=== PATIENT | male | born 1990 | race Caucasian/White ===

== ENCOUNTER 2016-11-30 19:25 | Emergency (ER) | payer OTHER ==
[~2016-11-30] VITALS: Ht 188 cm; Wt 68.0 kg
[~2016-11-30 19:25] MED LIST: TRAM50 PO
[2016-11-30 19:30] VITALS: BP 121/78; PULSE 92; RESP 18; TEMP 97.6; O2SAT 99
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
[2016-11-30] MEDS ORDERED: SODIUM CHLOR 0.9% 1000 ML INJ 1,000 ML IV SCH (20:00)
[2016-11-30] MEDS ORDERED: HYDROmorphone HCL PF 1 MG/ML VIAL IV PUSH ONE ×2 (20:00→20:45)
[2016-11-30] MEDS ORDERED: ONDANSETRON HCL 4 MG/2 ML VIAL IV PUSH ONE (20:00)
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
[2016-11-30 20:28] LABS: BASOPHIL # 0.2 TH/MM3 (0-0.2); BASOPHIL % 2.9 % (0.0-2.0); EOSINOPHIL # 0.1 TH/MM3 (0-0.4); EOSINOPHIL % 0.7 % (0.0-4.0); HEMATOCRIT 43.6 % (39.0-51.0); HEMO FLAGS DIFF FINAL; LYMPH % 17.3 % (9.0-44.0); LYMPHOCYTE # 1.5 TH/MM3 (1.0-4.8); MEAN CELL VOLUME 89.4 FL (80.0-100.0); MEAN CORPUSCULAR HEMOGLOBIN 30.1 PG (27.0-34.0); MEAN CORPUSCULAR HGB CONC 33.7 % (32.0-36.0); MONO % 7.2 % (0.0-8.0); NEUT % 71.9 % (16.0-70.0); PLATELET COUNT 379 TH/MM3 (150-450); RED BLOOD COUNT 4.88 MIL/MM3 (4.50-5.90); RED CELL DISTRIBUTION WIDTH 12.8 % (11.6-17.2); WHITE BLOOD COUNT 8.4 TH/MM3 (4.0-11.0)
[2016-11-30 20:47] LABS: BICARBONATE 30.9 MEQ/L (21.0-32.0)
[2016-11-30 20:49] LABS: POTASSIUM 4.4 MEQ/L (3.5-5.1)
[2016-11-30 21:06] VITALS: BP 114/64; PULSE 93; RESP 18; O2SAT 99
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
[2016-11-30] MEDS ORDERED: HYDR-3535 PO (21:18)
[2016-11-30 21:25] VITALS: RESP 16
[2016-11-30 21:36] VITALS: BP 115/66
== END 2016-11-30 21:53 | disposition home or self-care (01) ==
LOC: PHED 19:25
DX: S92.001A Unspecified fracture of right calcaneus, initial encounter for closed fracture (principal); F17.210 Nicotine dependence, cigarettes, uncomplicated; F10.10 Alcohol abuse, uncomplicated; V00.832A Motorized mobility scooter colliding with stationary object, initial encounter; Y93.9 Activity, unspecified; Y92.9 Unspecified place or not applicable; Y99.9 Unspecified external cause status
CPT/HCPCS: 29515; 73090; 73610; 73630; 73700; 80048; 85025; 96361; 96374; 96375; 96376; 99284; E0113; J1170; J2405; J7030

== ENCOUNTER 2017-04-15 17:45 | Emergency (ER) | payer OTHER ==
[~2017-04-15] VITALS: Ht 188 cm; Wt 65.0 kg
[~2017-04-15 17:45] MED LIST changes: +HYDR-3535 PO; -TRAM50 PO
[2017-04-15 17:47] VITALS: BP 136/79; PULSE 116; RESP 15; TEMP 98; O2SAT 98
--- NOTE | 2017-04-15 17:54 | PD ---
Physical Exam Time Seen by Provider: 17:51 Narrative 26yo M c/o R testicular pain for a couple days. Sent by urgent care to r/o torsion. +testicular swelling. Denies dysuria. Patient seen in triage. VS reviewed. Awaiting bed placement. Data Data Last Documented VS Vital Signs Date Time Temp Pulse Resp B/P (MAP) Pulse Ox O2 Delivery O2 Flow Rate FiO2 04/15/17 17:47 98.0 116 15 136/79 (98) 98 MDM Supervised Visit with GLADYS: Helen Vidal Apr 15, 2017 17:54
--- NOTE | 2017-04-15 18:42 | PD ---
HPI Chief Complaint: Complaint Time Seen by Provider: 18:22 Travel History International Travel<30 days: No Contact w/Intl Traveler<30days: No Traveled to known affect area: No History of Present Illness HPI c/o 2 days of testitcular pain right sided, 01/30, nonrad, no discharge, no fever , no n/v/d.... PFSH Past Medical History Hx Anticoagulant Therapy: No ADHD: No Arthritis: No Asthma: No Blood Disorders: No Bipolar Disorder: Yes Anxiety: Yes Depression: Yes Heart Rhythm Problems: No Cancer: No Cardiovascular Problems: No High Cholesterol: No Chemotherapy: No Chest Pain: No Congestive Heart Failure: No COPD: No Cerebrovascular Accident: No Diabetes: No Diminished Hearing: No Endocrine: No GERD: No Glaucoma: No Headaches: No Hepatitis: No Hiatal Hernia: No Hypertension: No Immune Disorder: No Implanted Vascular Access Dvce: No Kidney Stones: No Psychiatric: Yes (HX BIPOLAR, HX ETOH ABUSE) Respiratory: No Immunizations Current: Yes Migraines: No Myocardial Infarction: No Radiation Therapy: No Renal Failure: No Schizophrenia: Yes Seizures: No Past Surgical History Surgical History: No Previous Surgery Abdominal Surgery: No AICD: No Appendectomy: No Arteriovenous Shunt: No Cardiac Surgery: No Cholecystectomy: No Ear Surgery: No Endocrine Surgery: No Eye Surgery: No Genitourinary Surgery: No Gynecologic Surgery: No Insulin Pump: No Joint Replacement: No Neurologic Surgery: No Oral Surgery: No Pacemaker: No Thoracic Surgery: No Other Surgery: No Social History Alcohol Use: Yes (occassionaly ) Tobacco Use: Yes (1 ppd) Substance Use: No Allergies-Medications (Allergen,Severity, Reaction): Coded Allergies: penicillin G (Unverified Allergy, Severe, 04/15/17) Uncoded Allergies: DUST MITES (Allergy, Severe, 11/04/11) Reported Meds & Prescriptions Reported Meds & Active Scripts Active No Active Prescriptions or Reported Medications Review of Systems Except as stated in HPI: all other systems reviewed are Neg Genitourinary: Positive: Other (rt testicular pain) Physical Exam Narrative GENERAL: SKIN: Warm and dry. HEAD: Atraumatic. Normocephalic. EYES: Pupils equal and round. No scleral icterus. No injection or drainage. ENT: No nasal bleeding or discharge. Mucous membranes pink and moist. NECK: Trachea midline. No JVD. CARDIOVASCULAR: Regular rate and rhythm. RESPIRATORY: No accessory muscle use. Clear to auscultation. Breath sounds equal bilaterally. GASTROINTESTINAL: Abdomen soft, non-tender, nondistended. bilateral testicle have normal lie, neg blue dot, present and nl cremasteric reflex, neg inguinal hernia, neg inguinal nodes. however rt testicle mildly ttp MUSCULOSKELETAL: Extremities without clubbing, cyanosis, or edema. No obvious deformities. NEUROLOGICAL: Awake and alert. No obvious cranial nerve deficits. Motor grossly within normal limits. Five out of 5 muscle strength in the arms and legs. Normal speech. PSYCHIATRIC: Appropriate mood and affect; insight and judgment normal. Data Data Last Documented VS Vital Signs Date Time Temp Pulse Resp B/P (MAP) Pulse Ox O2 Delivery O2 Flow Rate FiO2 04/15/17 17:47 98.0 116 15 136/79 (98) 98 Orders Orders Us Testicles W Doppler (04/15/17 18:23) [facility] [place] Medical Decision Making Medical Screen Exam Complete: Yes Emergency Medical Condition: Yes Medical Record Reviewed: Yes Differential Diagnosis epidimytis v orchitis v testicular torsion Narrative Course patient was seen at outpatient and written for abx to treat for orchitis but sent here to r/o possible torsion, after review of testicular ultrasound, negative for torsion. Diagnosis Primary Impression: Orchitis Patient Instructions: General Instructions, Orchitis (ED) Scripts Oxycodone-Acetaminophen (Percocet) 5-325 mg Tab 1 TAB PO Q6H Y for PAIN, #20 TAB 0 Refills Prov: Jesus Calles MD 04/15/17 Disposition: 01 DISCHARGE HOME Condition: Stable Jesus Calles MD Apr 15, 2017 18:42
[2017-04-15] MEDS ORDERED: PERC5TAB12 PO (19:43)
--- NOTE | 2017-04-15 19:56 | RADRPT ---
EXAM DATE/TIME: 04/15/2017 19:11 [facility] COMPARISON: No previous studies available for comparison. INDICATIONS : Testicular pain. MEDICAL HISTORY : Conatcts. Bipolar. ETOH abuse. Schizophrenia. Depression. Anxiety. SURGICAL HISTORY : None. ENCOUNTER: Initial ACUITY: 4 - 6 days PAIN SCORE: 8/10 LOCATION: Bilateral testicles. MEASUREMENTS: RIGHT TESTICLE: 4.7 x 4.1 x 2.9cm LEFT TESTICLE: 5.3 x 3.4 x 2.5 cm FINDINGS: RIGHT TESTICLE: Homogeneous echotexture without intra or extratesticular mass. Blood flow is symmetric and within no rmal limits. There is a hydrocele. No varicocele. Epididymis is within normal limits. LEFT TESTICLE: Homogeneous echotexture without intra or extratesticular mass. Blood flow is symmetric and within no rmal limits. Small hydrocele and varicocele. Epididymis contains a 3 mm simple cyst otherwise, withi n normal limits. SCROTUM: Within normal limits. CONCLUSION: 1. No abnormality is identified to explain the bilateral testicle pain. 2. Bilateral hydroceles, right larger than left. Andrew Miguel MD on April 15, 2017 at 19:52 Board Certified Radiologist. This report was verified electronically.
[2017-04-15] MEDS ORDERED: oxyCODONE/ACETAMINOPHEN 5 MG/325 MG TAB PO ONE (20:00)
== END 2017-04-15 20:13 | disposition home or self-care (01) ==
LOC: NEPD 17:45
DX: N45.2 Orchitis (principal); N43.3 Hydrocele, unspecified; F31.9 Bipolar disorder, unspecified; F41.9 Anxiety disorder, unspecified; F20.9 Schizophrenia, unspecified; F17.200 Nicotine dependence, unspecified, uncomplicated; Z88.0 Allergy status to penicillin
CPT/HCPCS: 76870; 93975; 99285

== ENCOUNTER 2017-05-11 00:31 | Inpatient (IN) | payer OTHER ==
[~2017-05-11] VITALS: Ht 190.5 cm; Wt 63.9 kg
[2017-05-11] VITALS (8 sets, daily range): BP systolic 104–137; BP diastolic 64–85; PULSE 81–115; RESP 16–20; TEMP 97.7–98; O2SAT 97–100
[~2017-05-11 00:31] MED LIST changes: -HYDR-3535 PO; +PERC5TAB12 PO
[2017-05-11] MEDS ORDERED: SODIUM CHLOR 0.9% 1000 ML INJ 1,000 ML IV SCH (00:37)
[2017-05-11] MEDS ORDERED: TETANUS/DIPHTHERIA TOXOID ADULT 0.5 ML VIAL IM ONE (00:45)
[2017-05-11] MEDS ORDERED: SODIUM CHLORIDE 0.9% FLUSH 10 ML FLUSH IVF PRN (00:45)
[2017-05-11] MEDS ORDERED: LIDOCAINE HCL 1% 50 ML VIAL ONE (00:47)
[2017-05-11 00:59] LABS: AUTOMATED NEUTROPHIL # 5.6 TH/MM3 (1.8-7.7); BASOPHIL # 0.1 TH/MM3 (0-0.2); BASOPHIL % 1.2 % (0.0-2.0); EOSINOPHIL # 0.2 TH/MM3 (0-0.4); EOSINOPHIL % 2.1 % (0.0-4.0); HEMATOCRIT 38.7 % (39.0-51.0); HEMO FLAGS DIFF FINAL; LYMPH % 28.2 % (9.0-44.0); LYMPHOCYTE # 2.6 TH/MM3 (1.0-4.8); MEAN CELL VOLUME 91.3 FL (80.0-100.0); MEAN CORPUSCULAR HEMOGLOBIN 29.9 PG (27.0-34.0); MEAN CORPUSCULAR HGB CONC 32.8 % (32.0-36.0); NEUT % 60.5 % (16.0-70.0); PLATELET COUNT 395 TH/MM3 (150-450); RED BLOOD COUNT 4.24 MIL/MM3 (4.50-5.90); RED CELL DISTRIBUTION WIDTH 13.9 % (11.6-17.2); WHITE BLOOD COUNT 9.2 TH/MM3 (4.0-11.0)
[2017-05-11] MEDS ORDERED: MORPHINE SULFATE 4 MG/ML INJ ONE (01:05)
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
[2017-05-11 03:25] LABS: BICARBONATE 30.3 MEQ/L (21.0-32.0)
[2017-05-11 03:36] LABS: APTT (PATIENT) 25.1 SEC (24.3-30.1); PROTHROMBIN TIME - PATIENT 10.7 SEC (9.8-11.6)
--- NOTE | 2017-05-11 04:12 | PD ---
HPI Chief Complaint: Laceration/Skin Injury Time Seen by Provider: 04:05 Travel History International Travel<30 days: No Contact w/Intl Traveler<30days: No Traveled to known affect area: No History of Present Illness HPI Patient is a 26-year-old male with history of bipolar disorder, anxiety and depression who presents to emergency room complaints of left AC laceration. Patient initially reported that he caught his left arm in a sliding door, patient now admits that he tried to commit suicide by cutting himself in the left AC with a plate. Tetanus is not up-to-date. PFSH Past Medical History Hx Anticoagulant Therapy: No ADHD: No Arthritis: No Asthma: No Blood Disorders: No Bipolar Disorder: Yes Anxiety: Yes Depression: Yes Heart Rhythm Problems: No Cancer: No Cardiovascular Problems: No High Cholesterol: No Chemotherapy: No Chest Pain: No Congestive Heart Failure: No COPD: No Cerebrovascular Accident: No Diabetes: No Diminished Hearing: No Endocrine: No GERD: No Glaucoma: No Headaches: No Hepatitis: No Hiatal Hernia: No Hypertension: No Immune Disorder: No Implanted Vascular Access Dvce: No Kidney Stones: No Psychiatric: Yes (HX BIPOLAR, HX ETOH ABUSE) Respiratory: No Immunizations Current: Yes Migraines: No Myocardial Infarction: No Radiation Therapy: No Renal Failure: No Schizophrenia: Yes Seizures: No Tetanus Vaccination: Unknown Past Surgical History Abdominal Surgery: No AICD: No Appendectomy: No Arteriovenous Shunt: No Cardiac Surgery: No Cholecystectomy: No Ear Surgery: No Endocrine Surgery: No Eye Surgery: No Genitourinary Surgery: No Gynecologic Surgery: No Insulin Pump: No Joint Replacement: No Neurologic Surgery: No Oral Surgery: No Pacemaker: No Thoracic Surgery: No Other Surgery: No Social History Alcohol Use: Yes (3 BEERS WEEKLY) Tobacco Use: Yes (1 ppd) Substance Use: No Allergies-Medications (Allergen,Severity, Reaction): Coded Allergies: penicillin G (Unverified Allergy, Severe, 05/11/17) Uncoded Allergies: DUST MITES (Allergy, Severe, 11/04/11) Reported Meds & Prescriptions Reported Meds & Active Scripts Active Clindamycin (Clindamycin HCl) 300 Mg Cap 300 Mg PO Q6H 10 Days Review of Systems General / Constitutional: No: Fever Eyes: No: Visual changes HENT: No: Headaches Cardiovascular: No: Chest Pain or Discomfort Respiratory: No: Shortness of Breath Gastrointestinal: No: Abdominal Pain Genitourinary: No: Dysuria Musculoskeletal: No: Pain Skin: Positive Other (left AC laceration), No Rash Neurologic: No: Weakness Psychiatric: No: Depression Endocrine: No: Polydipsia Hematologic/Lymphatic: No: Easy Bruising Physical Exam Narrative GENERAL: moderate distress SKIN: Focused skin assessment warm/dry. HEAD: Atraumatic. Normocephalic. EYES: Pupils equal and round. No scleral icterus. No injection or drainage. ENT: No nasal bleeding or discharge. Mucous membranes pink and moist. NECK: Trachea midline. No JVD. CARDIOVASCULAR: Regular rate and rhythm. No murmur appreciated. RESPIRATORY: No accessory muscle use. Clear to auscultation. Breath sounds equal bilaterally. GASTROINTESTINAL: Abdomen soft, non-tender, nondistended. Hepatic and splenic margins not palpable. MUSCULOSKELETAL: RUE: normal exam LUE: Patient with venous vs arterial bleed in left AC, patient does have bounding radial pulses, neurovascular intact NEUROLOGICAL: Awake and alert. No obvious cranial nerve deficits. Motor grossly within normal limits. Normal speech. PSYCHIATRIC: Appropriate mood and affect; insight and judgment normal. Data Data Last Documented VS Vital Signs Date Time Temp Pulse Resp B/P (MAP) Pulse Ox O2 Delivery O2 Flow Rate FiO2 05/11/17 07:28 90 16 110/85 (93) 98 Room Air 05/11/17 00:45 98.0 Orders Orders Basic Metabolic Panel (Bmp) (05/11/17 00:37) Complete Blood Count With Diff (05/11/17 00:37) Prothrombin Time / Inr (Pt) (05/11/17 00:37) Act Partial Throm Time (Ptt) (05/11/17 00:37) Type And Screen (05/11/17 00:37) Iv Access Insert/Monitor (05/11/17 00:37) Sodium Chlor 0.9% 1000 Ml Inj (Ns 1000 M (05/11/17 00:37) Sodium Chloride 0.9% Flush (Ns Flush) (05/11/17 00:45) Tetanus/Diphtheria Tox Adult (Tetanus/Di (05/11/17 00:45) Lidocaine 1% Inj (50 Ml) (Xylocaine 1% I (05/11/17 00:47) Comprehensive Metabolic Panel (05/11/17 00:50) Psych Screen (05/11/17 00:50) Drug Screen, Random Urine (05/11/17 00:50) Alcohol (Ethanol) (05/11/17 00:50) Forearm (2vws) (05/11/17 ) Morphine Inj (Morphine Inj) (05/11/17 01:05) Cta Up Extrem W Iv Cont W 3d (05/11/17 ) Consult Vascular Surgery (05/11/17 ) Vancomycin Inj (Vancomycin Inj) (05/11/17 07:00) (Hub Use Only)Inp Phy Cons/Ref (05/11/17 ) Vancomycin Inj (Vancomycin Inj) (05/11/17 08:00) Diet Regular Basic (05/11/17 Breakfast) Diet Regular Basic (05/11/17 Lunch) Admit Order (Ed Use Only) (05/11/17 ) Admit To Inpatient Psych (05/11/17 ) Code Status (05/11/17 15:44) Vital Signs (Adult) YONIS.Q12H.E (05/11/17 15:44) Activity Oob Ad Tanja (05/11/17 15:44) Level Of Observation (Psych) (05/11/17 15:44) Acetaminophen (Tylenol) (05/11/17 15:45) Magnesium Hydroxide Liq (Milk Of Magnesi (05/11/17 15:45) Al-Mag Hy-Si 40-40-4 Mg/Ml Liq (Mag-Al P (05/11/17 15:45) Nicotine 21 Mg Patch.24 Hr (Habitrol 21 (05/12/17 09:00) Basic Metabolic Panel (Bmp) (05/12/17 06:00) Lipid Profile (05/12/17 06:00) Hemoglobin (Hgb) A1c (05/12/17 06:00) Labs Laboratory Tests Test 05/11/17 00:40 05/11/17 03:55 White Blood Count 9.2 TH/MM3 Red Blood Count 4.24 MIL/MM3 Hemoglobin 12.7 GM/DL Hematocrit 38.7 % Mean Corpuscular Volume 91.3 FL Mean Corpuscular Hemoglobin 29.9 PG Mean Corpuscular Hemoglobin Concent 32.8 % Red Cell Distribution Width 13.9 % Platelet Count 395 TH/MM3 Mean Platelet Volume 6.6 FL Neutrophils (%) (Auto) 60.5 % Lymphocytes (%) (Auto) 28.2 % Monocytes (%) (Auto) 8.0 % Eosinophils (%) (Auto) 2.1 % Basophils (%) (Auto) 1.2 % Neutrophils # (Auto) 5.6 TH/MM3 Lymphocytes # (Auto) 2.6 TH/MM3 Monocytes # (Auto) 0.7 TH/MM3 Eosinophils # (Auto) 0.2 TH/MM3 Basophils # (Auto) 0.1 TH/MM3 CBC Comment DIFF FINAL Differential Comment Prothrombin Time 10.7 SEC Prothromb Time International Ratio 1.0 RATIO Activated Partial Thromboplast Time 25.1 SEC Blood Urea Nitrogen 9 MG/DL Creatinine 0.76 MG/DL Random Glucose 116 MG/DL Total Protein 6.4 GM/DL Albumin 3.2 GM/DL Calcium Level 8.5 MG/DL Alkaline Phosphatase 59 U/L Aspartate Amino Transf (AST/SGOT) 21 U/L Alanine Aminotransferase (ALT/SGPT) 28 U/L Total Bilirubin 0.1 MG/DL Sodium Level 140 MEQ/L Potassium Level 4.0 MEQ/L Chloride Level 106 MEQ/L Carbon Dioxide Level 29.5 MEQ/L Anion Gap 5 MEQ/L Estimat Glomerular Filtration Rate 124 ML/MIN Ethyl Alcohol Level LESS THAN 3 MG/DL Urine Opiates Screen POS Urine Barbiturates Screen NEG Urine Amphetamines Screen NEG Urine Benzodiazepines Screen NEG Urine Cocaine Screen NEG Urine Cannabinoids Screen NEG MDM Medical Decision Making Medical Screen Exam Complete: Yes Emergency Medical Condition: Yes Interpretation(s) Vital Signs Date Time Temp Pulse Resp B/P (MAP) Pulse Ox O2 Delivery O2 Flow Rate FiO2 05/11/17 03:58 95 18 120/67 (84) 97 Room Air 05/11/17 01:35 97 16 114/74 (87) 99 Room Air 05/11/17 00:59 115 18 137/70 (92) 100 Room Air 05/11/17 00:51 111 18 129/74 (92) 100 Room Air 05/11/17 00:45 98.0 99 20 129/74 (92) 98 Laboratory Tests Test 05/11/17 00:40 White Blood Count 9.2 TH/MM3 (4.0-11.0) Red Blood Count 4.24 MIL/MM3 (4.50-5.90) Hemoglobin 12.7 GM/DL (13.0-17.0) Hematocrit 38.7 % (39.0-51.0) Mean Corpuscular Volume 91.3 FL (80.0-100.0) Mean Corpuscular Hemoglobin 29.9 PG (27.0-34.0) Mean Corpuscular Hemoglobin Concent 32.8 % (32.0-36.0) Red Cell Distribution Width 13.9 % (11.6-17.2) Platelet Count 395 TH/MM3 (150-450) Mean Platelet Volume 6.6 FL (7.0-11.0) Neutrophils (%) (Auto) 60.5 % (16.0-70.0) Lymphocytes (%) (Auto) 28.2 % (9.0-44.0) Monocytes (%) (Auto) 8.0 % (0.0-8.0) Eosinophils (%) (Auto) 2.1 % (0.0-4.0) Basophils (%) (Auto) 1.2 % (0.0-2.0) Neutrophils # (Auto) 5.6 TH/MM3 (1.8-7.7) Lymphocytes # (Auto) 2.6 TH/MM3 (1.0-4.8) Monocytes # (Auto) 0.7 TH/MM3 (0-0.9) Eosinophils # (Auto) 0.2 TH/MM3 (0-0.4) Basophils # (Auto) 0.1 TH/MM3 (0-0.2) CBC Comment DIFF FINAL Differential Comment Prothrombin Time 10.7 SEC (9.8-11.6) Prothromb Time International Ratio 1.0 RATIO Activated Partial Thromboplast Time 25.1 SEC (24.3-30.1) Blood Urea Nitrogen 9 MG/DL (7-18) Creatinine 0.74 MG/DL (0.60-1.30) Random Glucose 120 MG/DL (74-106) Calcium Level 8.4 MG/DL (8.5-10.1) Sodium Level 142 MEQ/L (136-145) Potassium Level 4.0 MEQ/L (3.5-5.1) Chloride Level 106 MEQ/L (98-107) Carbon Dioxide Level 30.3 MEQ/L (21.0-32.0) Anion Gap 6 MEQ/L (5-15) Estimat Glomerular Filtration Rate 128 ML/MIN (>89) Differential Diagnosis Differential includes ulnar artery versus venous injury, depression, schizophenia Narrative Course Patient is a 26 year old male who presents to ER with c/o of left sided AC laceration. Patient reports that he tried to commit suicide today by slitting his left AC with a plate. Patient arrives to the emergency room with a tourniquet in place. Patient was evaluated, patient with arterial versus venous bleeding. I attempted to ligate off bleeding vessel with absorbable figure of 8 sutures. After absorbable sutures placed, tourniquet was removed and patient had return of bleeding. The tourniquet was replaced and I was able to place 3 5.0 Prolene sutures with pressure dressing - bleeding controlled at this time. CTA ordered to evaluate for possible arterial bleeding. CTA neg for arterial compromise. Prolene sutures were removed and deep absorbable sutures were placed and laceration was repaired. Patient was given a dose of IV vanco. Understands need for antibiotics as outpatient. Signs of infection was reviewed with patient in detail, understands need for wound check in 48 hours. Case reviewed with vascular surgery, Dr. Pastrana, patient with most likely venous bleed. Patient can be sutured up and cleared for psychiatric screening. patient cleared for psychiatric screener Critical Care Narrative Aggregate critical care time was 60 minutes. Time to perform other separately billable procedures was not included in the critical care time. My time did not include minutes spent treating any other patients simultaneously or on activities that did not directly contribute to the patient's treatment. The services I provided to this patient were to treat and/or prevent clinically significant deterioration that could result in: , decompensation, deterioration I provided critical care services requiring my management, as noted below: Chart data review, documentation time, medication orders and management, vital sign assessments/reviewing monitor data, ordering and reviewing lab tests, ordering and interpreting/reviewing x-rays and diagnostic studies, care of the patient and discussion of the patient with the admitting physicians. Diagnosis Primary Impression: Laceration of arm, left, complicated Additional Impression: Suicidal ideation Patient Instructions: General Instructions Additional Instructions: suture removal in 7 days have your wound checked in 48 hours return to ER if you develop any signs of infection please take all antibiotics as prescribed Scripts Clindamycin (Clindamycin) 300 Mg Cap 300 MG PO Q6H for Infection for 10 Days, #40 CAP 0 Refills Prov: Erika Mehta DO 05/11/17 Erika Mehta DO May 11, 2017 04:12
[2017-05-11] MEDS ORDERED: IOHEXOL 350 MG/ML 10 ML VIAL (for RAD DIAG) IVCONTRAST ONE (04:13)
[2017-05-11 05:01] LABS: ALKALINE PHOSPHATASE 59 U/L (45-117); TOTAL BILIRUBIN ADULT 0.1 MG/DL (0.2-1.0)
[2017-05-11 05:11] LABS: ALT (GPT) 28 U/L (12-78); ANION GAP 5 MEQ/L (5-15); AST (GOT) 21 U/L (15-37); BICARBONATE 29.5 MEQ/L (21.0-32.0); BLOOD UREA NITROGEN 9 MG/DL (7-18); CHLORIDE 106 MEQ/L (98-107); GLOMERULAR FILTRATION RATE 124 ML/MIN (>89); SODIUM (NA) 140 MEQ/L (136-145)
[2017-05-11 05:20] LABS: ALCOHOL LESS THAN 3 MG/DL (0-5)
--- NOTE | 2017-05-11 05:51 | PD.CAR.PN ---
CVT Progress Note Subjective/Hospital Course: 26-year-old male with extensive psychiatric history arrives to emergency room with self inflicted wound to the left antecubital fossa, possibly suicide attempt. Patient lost the small amount of blood and has a questionable injury to the tendons and arteries Physical examination reveals good brachial ulnar and radial pulse which is strong and palpable. Incision antecubital posthitis fairly shallow involves antecubital vein but does not go beyond that and does not penetrate the neurovascular fascia. Patient does not have tendon injuries or ligamentous injury Neurologic function is intact in median and ulnar nerve innervation areas are fully intact Patient needs a incision closed and then can be transferred safely to psychiatry No other surgical therapy will be necessary. Stitches sustained for about 2 weeks Diagnosis Superficial wound to the left antecubital fossa without involvement of major neurovascular structures. Thanks J Objective: Vital Signs Date Time Temp Pulse Resp B/P (MAP) Pulse Ox O2 Delivery O2 Flow Rate FiO2 05/11/17 03:58 95 18 120/67 (84) 97 Room Air 05/11/17 01:35 97 16 114/74 (87) 99 Room Air 05/11/17 00:59 115 18 137/70 (92) 100 Room Air 05/11/17 00:51 111 18 129/74 (92) 100 Room Air 05/11/17 00:45 98.0 99 20 129/74 (92) 98 Labs: Laboratory Tests Test 05/11/17 00:40 05/11/17 03:55 White Blood Count 9.2 TH/MM3 (4.0-11.0) Red Blood Count 4.24 MIL/MM3 (4.50-5.90) Hemoglobin 12.7 GM/DL (13.0-17.0) Hematocrit 38.7 % (39.0-51.0) Mean Corpuscular Volume 91.3 FL (80.0-100.0) Mean Corpuscular Hemoglobin 29.9 PG (27.0-34.0) Mean Corpuscular Hemoglobin Concent 32.8 % (32.0-36.0) Red Cell Distribution Width 13.9 % (11.6-17.2) Platelet Count 395 TH/MM3 (150-450) Mean Platelet Volume 6.6 FL (7.0-11.0) Neutrophils (%) (Auto) 60.5 % (16.0-70.0) Lymphocytes (%) (Auto) 28.2 % (9.0-44.0) Monocytes (%) (Auto) 8.0 % (0.0-8.0) Eosinophils (%) (Auto) 2.1 % (0.0-4.0) Basophils (%) (Auto) 1.2 % (0.0-2.0) Neutrophils # (Auto) 5.6 TH/MM3 (1.8-7.7) Lymphocytes # (Auto) 2.6 TH/MM3 (1.0-4.8) Monocytes # (Auto) 0.7 TH/MM3 (0-0.9) Eosinophils # (Auto) 0.2 TH/MM3 (0-0.4) Basophils # (Auto) 0.1 TH/MM3 (0-0.2) CBC Comment DIFF FINAL Differential Comment Prothrombin Time 10.7 SEC (9.8-11.6) Prothromb Time International Ratio 1.0 RATIO Activated Partial Thromboplast Time 25.1 SEC (24.3-30.1) Blood Urea Nitrogen 9 MG/DL (7-18) Creatinine 0.76 MG/DL (0.60-1.30) Random Glucose 116 MG/DL (74-106) Total Protein 6.4 GM/DL (6.4-8.2) Albumin 3.2 GM/DL (3.4-5.0) Calcium Level 8.5 MG/DL (8.5-10.1) Alkaline Phosphatase 59 U/L (45-117) Aspartate Amino Transf (AST/SGOT) 21 U/L (15-37) Alanine Aminotransferase (ALT/SGPT) 28 U/L (12-78) Total Bilirubin 0.1 MG/DL (0.2-1.0) Sodium Level 140 MEQ/L (136-145) Potassium Level 4.0 MEQ/L (3.5-5.1) Chloride Level 106 MEQ/L (98-107) Carbon Dioxide Level 29.5 MEQ/L (21.0-32.0) Anion Gap 5 MEQ/L (5-15) Estimat Glomerular Filtration Rate 124 ML/MIN (>89) Ethyl Alcohol Level LESS THAN 3 MG/DL (0-5) Urine Opiates Screen POS (NEG) Urine Barbiturates Screen NEG (NEG) Urine Amphetamines Screen NEG (NEG) Urine Benzodiazepines Screen NEG (NEG) Urine Cocaine Screen NEG (NEG) Urine Cannabinoids Screen NEG (NEG) Result Diagram: 05/11/170 05/11/17 0040 Jeni Pastrana MD May 11, 2017 05:51
--- NOTE | 2017-05-11 06:13 | PD ---
Physical Exam Date Seen by Provider: May 11, 2017 Time Seen by Provider: 06:10 Narrative Skin: Patient has a laceration to the left antecubital fossa consistent with a self-inflicted wound. The laceration measures5 cm. Laceration goes through the subcutaneous tissues through venous structure but there is no deep structure injury. No arterial, nerve or arterial injury. Patient has intact sensation with good distal pulses. He has intact median/ulnar/radial nerves. Data Data Last Documented VS Vital Signs Date Time Temp Pulse Resp B/P (MAP) Pulse Ox O2 Delivery O2 Flow Rate FiO2 05/11/17 03:58 95 18 120/67 (84) 97 Room Air 05/11/17 00:45 98.0 Orders Orders Basic Metabolic Panel (Bmp) (05/11/17 00:37) Complete Blood Count With Diff (05/11/17 00:37) Prothrombin Time / Inr (Pt) (05/11/17 00:37) Act Partial Throm Time (Ptt) (05/11/17 00:37) Type And Screen (05/11/17 00:37) Iv Access Insert/Monitor (05/11/17 00:37) Sodium Chlor 0.9% 1000 Ml Inj (Ns 1000 M (05/11/17 00:37) Sodium Chloride 0.9% Flush (Ns Flush) (05/11/17 00:45) Tetanus/Diphtheria Tox Adult (Tetanus/Di (05/11/17 00:45) Lidocaine 1% Inj (50 Ml) (Xylocaine 1% I (05/11/17 00:47) Comprehensive Metabolic Panel (05/11/17 00:50) Psych Screen (05/11/17 00:50) Drug Screen, Random Urine (05/11/17 00:50) Alcohol (Ethanol) (05/11/17 00:50) Forearm (2vws) (05/11/17 ) Morphine Inj (Morphine Inj) (05/11/17 01:05) Cta Up Extrem W Iv Cont W 3d (05/11/17 ) Consult Vascular Surgery (05/11/17 ) Labs Laboratory Tests Test 05/11/17 00:40 05/11/17 03:55 White Blood Count 9.2 TH/MM3 Red Blood Count 4.24 MIL/MM3 Hemoglobin 12.7 GM/DL Hematocrit 38.7 % Mean Corpuscular Volume 91.3 FL Mean Corpuscular Hemoglobin 29.9 PG Mean Corpuscular Hemoglobin Concent 32.8 % Red Cell Distribution Width 13.9 % Platelet Count 395 TH/MM3 Mean Platelet Volume 6.6 FL Neutrophils (%) (Auto) 60.5 % Lymphocytes (%) (Auto) 28.2 % Monocytes (%) (Auto) 8.0 % Eosinophils (%) (Auto) 2.1 % Basophils (%) (Auto) 1.2 % Neutrophils # (Auto) 5.6 TH/MM3 Lymphocytes # (Auto) 2.6 TH/MM3 Monocytes # (Auto) 0.7 TH/MM3 Eosinophils # (Auto) 0.2 TH/MM3 Basophils # (Auto) 0.1 TH/MM3 CBC Comment DIFF FINAL Differential Comment Prothrombin Time 10.7 SEC Prothromb Time International Ratio 1.0 RATIO Activated Partial Thromboplast Time 25.1 SEC Blood Urea Nitrogen 9 MG/DL Creatinine 0.76 MG/DL Random Glucose 116 MG/DL Total Protein 6.4 GM/DL Albumin 3.2 GM/DL Calcium Level 8.5 MG/DL Alkaline Phosphatase 59 U/L Aspartate Amino Transf (AST/SGOT) 21 U/L Alanine Aminotransferase (ALT/SGPT) 28 U/L Total Bilirubin 0.1 MG/DL Sodium Level 140 MEQ/L Potassium Level 4.0 MEQ/L Chloride Level 106 MEQ/L Carbon Dioxide Level 29.5 MEQ/L Anion Gap 5 MEQ/L Estimat Glomerular Filtration Rate 124 ML/MIN Ethyl Alcohol Level LESS THAN 3 MG/DL Urine Opiates Screen POS Urine Barbiturates Screen NEG Urine Amphetamines Screen NEG Urine Benzodiazepines Screen NEG Urine Cocaine Screen NEG Urine Cannabinoids Screen NEG MDM Medical Record Reviewed: Yes Supervised Visit with GLADYS: Yes Interpretation(s) CTA left upper extremity shows intact arterial structures. Last 24 hours Impressions Radius/Ulna X-Ray 05/11/17 0000 Signed Impressions: Service Date/Time: Thursday, May 11, 2017 01:09 - CONCLUSION: Unremarkable examination of the left forearm. Guanakito Gottlieb Jr., MD Differential Diagnosis MDM: High Differential diagnoses: Fracture, sprain, strain, dislocation, contusion, neurovascular injury, self-inflicted wound Narrative Course Patient's laceration is closed with sutures. Procedures Procedure Narrative LACERATION LOCATION: Left antecubital fossa LENGTH: 5 cm NUMBER OF STITCHES/MAKEDA: 9 REPAIR: The area of the laceration was prepped with Betadine and sterilely draped. The laceration was infiltrated with 1% lidocaine. The wound was copiously irrigated and explored without evidence of foreign body, tendon injury or neurovascular injury. Venous bleeding is ligated using 4-0 Vicryl. The wound was closed using 4-0 proline. This was a single layer repair. A sterile dressing was applied. The patient was advised to keep the dressing clean and dry. Patient tolerated the procedure well. Scripts No Active Prescriptions or Reported Meds Condition: Imer Horvath May 11, 2017 06:13
[2017-05-11] MEDS ORDERED: CLIN1CAP6 PO (06:47)
[2017-05-11] MEDS ORDERED: VANCOMYCIN INJ 1,000 MG in SODIUM CHLOR 0.9% 250 ML INJ 250 ML IV ONE ×2 (07:00→08:00)
--- NOTE | 2017-05-11 08:43 | RADRPT ---
EXAM DATE/TIME: 05/11/2017 04:13 [facility] COMPARISON: No previous studies available for comparison. INDICATIONS : Patient has laceration to left forearm near elbow. IV CONTRAST: 100 cc Omnipaque 350 (iohexol) IV RADIATION DOSE: 7.48 CTDIvol (mGy) MEDICAL HISTORY : None SURGICAL HISTORY : None. ENCOUNTER: Initial ACUITY: 1 day PAIN SCALE: 10/10 LOCATION: Left upper extremity. TECHNIQUE: Volumetric scanning was performed using a multirow detector CT scanner. Using automated exposure cont rol and adjustment of the mA and/or kV according to patient size, radiation dose was kept as low as r easonably achievable to obtain optimal diagnostic quality images. The data was post processed with a variety of visualization algorithms including full-volume maximum intensity projection, multiplanar sliding thin-slab reformation, curved-planar reformation, and surface-rendering techniques. Using au tomated exposure control and adjustment of the mA and/or kV according to patient size, radiation dose was kept as low as reasonably achievable to obtain optimal diagnostic quality images. DICOM format image data is available electronically for review and comparison. FINDINGS: The subclavian artery through the palmar arch is normal. No filling defects. No intimal flaps. No jyothi rounding hematoma. No radiopaque foreign bodies. No fractures. CONCLUSION: Normal examination. Guanakito Gottlieb Jr., MD on May 11, 2017 at 4:57 Board Certified Radiologist. This report was verified electronically.
[2017-05-11] MEDS ORDERED: ALUMINUM/MAGNESIUM/SIMETH 30 ML CUP PO PRN (15:45)
[2017-05-11] MEDS ORDERED: ACETAMINOPHEN 325 MG TAB PO PRN (15:45)
[2017-05-11] MEDS ORDERED: MAGNESIUM HYDROXIDE SUSP 30 ML CUP PO PRN (15:45)
[2017-05-12 06:05] VITALS: BP 118/57; PULSE 78; RESP 18; TEMP 98.2; O2SAT 99
[2017-05-12] MEDS: NICOTINE 21 MG/24 HR PATCH T-DERMAL SCH (09:00)
[2017-05-12 11:22] LABS: ANION GAP 6 MEQ/L (5-15); BICARBONATE 30.3 MEQ/L (21.0-32.0); BLOOD UREA NITROGEN 9 MG/DL (7-18); CHLORIDE 101 MEQ/L (98-107); GLOMERULAR FILTRATION RATE 132 ML/MIN (>89); SODIUM (NA) 137 MEQ/L (136-145)
[2017-05-12 11:24] LABS: LDL CHOLESTEROL 35 MG/DL (0-99)
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
[2017-05-12] MEDS: CLINDAMYCIN 150 MG CAP PO SCH (17:11)
[2017-05-12 17:29] LABS: HEMOGLOBIN A1a 1.2 %; HEMOGLOBIN A1b 0.7 %; HEMOGLOBIN Ao 85.6 %; HEMOGLOBIN F 1.7 %; HEMOGLOBIN LA1C 1.7 %; HEMOGLOBIN P3 3.4 %
[2017-05-12 18:34] VITALS: BP 123/69; PULSE 96; RESP 18; TEMP 97.2; O2SAT 98
[2017-05-12] MEDS: REMOVE OLD NICODERM (NICOTINE) PATCH T-DERMAL SCH (21:00)
[2017-05-13 06:07] VITALS: BP 114/68; PULSE 72; RESP 16; TEMP 98.8; O2SAT 98
[2017-05-13] MEDS: CLINDAMYCIN 150 MG CAP PO SCH ×5 (06:13→23:17)
[2017-05-13] MEDS: NICOTINE 21 MG/24 HR PATCH T-DERMAL SCH (09:57)
[2017-05-13] MEDS: REMOVE OLD NICODERM (NICOTINE) PATCH T-DERMAL SCH (09:57)
[2017-05-13 18:01] VITALS: BP 127/72; PULSE 97; RESP 17; TEMP 97.7; O2SAT 100
[2017-05-14 04:53] VITALS: BP 120/70; PULSE 81; RESP 16; TEMP 98; O2SAT 98
[2017-05-14] MEDS: CLINDAMYCIN 150 MG CAP PO SCH ×3 (06:02→18:46)
[2017-05-14] MEDS: NICOTINE 21 MG/24 HR PATCH T-DERMAL SCH (09:27)
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
[2017-05-14 18:17] VITALS: BP 141/65; PULSE 103; RESP 18; TEMP 97.6; O2SAT 96
[2017-05-14] MEDS: REMOVE OLD NICODERM (NICOTINE) PATCH T-DERMAL SCH (21:00)
[2017-05-15] MEDS: CLINDAMYCIN 150 MG CAP PO SCH ×4 (05:49→17:57)
[2017-05-15 06:13] VITALS: BP 124/68; PULSE 85; RESP 18; TEMP 98.4; O2SAT 97
[2017-05-15] MEDS: NICOTINE 21 MG/24 HR PATCH T-DERMAL SCH (08:25)
[2017-05-15 18:29] VITALS: BP 127/58; PULSE 105; RESP 18; TEMP 98.2; O2SAT 96
[2017-05-15] MEDS ORDERED: CLIN150 PO (19:35)
--- NOTE | 2017-05-15 20:27 | MD ---
cc: ANITA FELDMAN ADMISSION DATE: 05/11/2017 DISCHARGE DATE: [facility].Discharge Date 05/15/2017 ADMISSION DIAGNOSES [place] I: Bipolar affective disorder under remission. Polysubstance abuse. Chronic alcohol abuse. Self-inflicted laceration left antecubital fossa. 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 [place] III: No diagnosis. [place] IV: Severity of psychosocial stressors moderate, i.e., chronic psychiatric illness, conflictual relationship with girlfriend and mother and siblings. [place] V: Current GAF score 40. DISCHARGE DIAGNOSIS [place] I: Bipolar affective disorder under remission. Polysubstance abuse. Chronic alcohol abuse. Self-inflicted laceration left antecubital fossa. 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 [place] III: No diagnosis. [place] IV: Severity of psychosocial stressors moderate, i.e., chronic psychiatric illness, conflictual relationship with girlfriend and mother and siblings. [place] V: Current GAF score 60. This 26-year-old white male was brought to the emergency room OF this hospital by [facility] and was placed under the Daigle Act by the emergency room physician because of self-inflicted laceration to his left antecubital fossa which required suturing. This was precipitated by an argument with his girlfriend. Please refer to my initial and previous evaluations for details. LABORATORY FINDINGS CBC with differential unremarkable. CMP was done on different dates and was essentially unremarkable except serum triglycerides were 236. Urine drug screen was positive for opiates. Blood alcohol level less than 3. X-ray of the left forearm was negative for any fracture or dislocation. CTA of the left upper extremity was negative for any acute process. HOSPITAL COURSE Mr. Borrero is known to me since his adolescence. He has required several admissions to [facility] and to the [facility]. All of these admissions have resulted from acting out behavior. In addition, he has significant substance abuse problem. Unfortunately, he has very limited insight and motivation to work on these. When initially evaluated this time he denied the self-inflicted laceration was a suicide attempt and attributed this to an argument he had with his ex-girlfriend during which he became angry and engaged in this behavior. He denied any recent history of manic or depressive episodes. It should be mentioned that he does not like to take any medications or for that matter complies with any outpatient follow up. This happens to the case this time as well. Despite best efforts he refused to consider taking the medications he was previously discharged on i.e., Depakote and Zoloft. He was given option to try any different medication of his choice but he still was not receptive to it. Considering his history of acting out and recent self-inflicted laceration it was felt that he needed more time to process his behavior and hopefully change his mind in regards to the medications. As such involuntary admission was initiated. His condition was reviewed on a daily basis with the treatment team. Compared to other admissions this time he displayed better attitude. He did not exhibit any aggressive or self-destructive behavior nor did he exhibit any psychotic symptoms. He however remained his superficial self and very focused on discharge. He tends to externalize the blame and this was also quite noticeable during this admission as well. The therapist talked with his mother yesterday and she also supported his request for discharge. I met with both of them today in a family session and we reviewed his condition, the recommended treatment approach. The mother indicated that he seemed to doing better than previous admissions and supported his request for discharge. They both wrote a note to this effect which is in the chart. The mother is very supportive and reassured that she will make followup appointments for him for individual therapy and psychiatric followup at [facility]. His condition was again reviewed with the treatment team and it was felt considering the fact that he has not exhibited any psychotic symptoms nor has he engaged in any aggressive or self-destructive behavior and the fact that the mother is quite supportive and motivated to assist him with outpatient follow up the Daigle Act would be lifted. So at this time he is felt that he no longer meets the Daigle Act criteria and is being discharged in the custody of his mother with recommendations to continue outpatient follow up at [facility]. The mother and the patient were also recommended to follow up with the primary care physician or return to the emergency room for removal of sutures. He is being given a prescription of clindamycin 300 milligrams p.o. q.6 hours, 5 days supply. MD SARAH Bolanos/JANNETH /7:52 PM /8:07 PM
== END 2017-05-15 20:55 | disposition home or self-care (01) | DRG 885 ==
LOC: NEPE 00:31 → NEDA 15:47 → H260 16:50
PROVIDERS: ADMIT Psychiatry & Neurology Psychiatry; ATTEND Psychiatry & Neurology Psychiatry
PROC: 0HQEXZZ Repair Left Lower Arm Skin, External Approach (ICD-10-PCS; principal; 2017-05-11)
DX: F31.70 Bipolar disorder, currently in remission, most recent episode unspecified (principal); F60.3 Borderline personality disorder; F10.10 Alcohol abuse, uncomplicated; F19.10 Other psychoactive substance abuse, uncomplicated; F60.2 Antisocial personality disorder; F60.89 Other specific personality disorders; S51.012A Laceration without foreign body of left elbow, initial encounter; F17.210 Nicotine dependence, cigarettes, uncomplicated; X78.8XXA Intentional self-harm by other sharp object, initial encounter; Y92.009 Unspecified place in unspecified non-institutional (private) residence as the place of occurrence of the external cause
CPT/HCPCS: 12002; 73090; 73206; 80048; 80053; 80061; 80307; 83036; 85025; 85610; 85730; 86850; 86900; 86901; 90471; 90714; 96361; 96374; 96375; J2270; J3370; J7030; J7050; Q9967

== ENCOUNTER 2017-05-16 04:28 | Emergency (ER) | payer OTHER ==
[~2017-05-16] VITALS: Ht 188 cm; Wt 70.0 kg
[~2017-05-16 04:28] MED LIST changes: +CLIN150 PO; +CLIN1CAP6 PO; -PERC5TAB12 PO
[2017-05-16 05:01] VITALS: BP 126/86; PULSE 79; RESP 16; TEMP 98.7; O2SAT 98
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
[2017-05-16 06:04] LABS: ALT (GPT) 70 U/L (12-78); ANION GAP 8 MEQ/L (5-15); AST (GOT) 34 U/L (15-37); AUTOMATED NEUTROPHIL # 11.2 TH/MM3 (1.8-7.7); BASOPHIL # 0.1 TH/MM3 (0-0.2); BASOPHIL % 0.8 % (0.0-2.0); BICARBONATE 23.4 MEQ/L (21.0-32.0); BLOOD UREA NITROGEN 9 MG/DL (7-18); CHLORIDE 106 MEQ/L (98-107); EOSINOPHIL # 0.2 TH/MM3 (0-0.4); EOSINOPHIL % 1.3 % (0.0-4.0); GLOMERULAR FILTRATION RATE 130 ML/MIN (>89); HEMATOCRIT 35.5 % (39.0-51.0); HEMO FLAGS DIFF FINAL; LYMPH % 12.6 % (9.0-44.0); LYMPHOCYTE # 1.8 TH/MM3 (1.0-4.8); MEAN CELL VOLUME 89.6 FL (80.0-100.0); MEAN CORPUSCULAR HEMOGLOBIN 30.4 PG (27.0-34.0); MEAN CORPUSCULAR HGB CONC 33.9 % (32.0-36.0); MONO % 8.7 % (0.0-8.0); NEUT % 76.6 % (16.0-70.0); PLATELET COUNT 366 TH/MM3 (150-450); POTASSIUM 4.1 MEQ/L (3.5-5.1); RED BLOOD COUNT 3.96 MIL/MM3 (4.50-5.90); RED CELL DISTRIBUTION WIDTH 14.1 % (11.6-17.2); SODIUM (NA) 137 MEQ/L (136-145); WHITE BLOOD COUNT 14.6 TH/MM3 (4.0-11.0)
[2017-05-16 06:06] LABS: ALKALINE PHOSPHATASE 67 U/L (45-117); TOTAL BILIRUBIN ADULT 0.2 MG/DL (0.2-1.0)
[2017-05-16 06:18] LABS: ALCOHOL LESS THAN 3 MG/DL (0-5)
[2017-05-16 06:45] VITALS: BP 126/72; PULSE 95; RESP 16; TEMP 98.1; O2SAT 99
[2017-05-16 09:46] VITALS: BP 128/75; PULSE 100; RESP 18; TEMP 98.6; O2SAT 98
== END 2017-05-16 10:15 | disposition left against medical advice (07) ==
LOC: NEPC 04:28
DX: F43.25 Adjustment disorder with mixed disturbance of emotions and conduct (principal); S61.512A Laceration without foreign body of left wrist, initial encounter; X78.9XXA Intentional self-harm by unspecified sharp object, initial encounter
CPT/HCPCS: 80053; 80307; 85025; 99283

== ENCOUNTER 2017-05-16 09:41 | Emergency (ER) | payer OTHER ==
[~2017-05-16] VITALS: Ht 182.9 cm; Wt 65.0 kg
[2017-05-16 10:42] LABS: AUTOMATED NEUTROPHIL # 11.4 TH/MM3 (1.8-7.7); BASOPHIL # 0.2 TH/MM3 (0-0.2); BASOPHIL % 1.1 % (0.0-2.0); EOSINOPHIL # 0.2 TH/MM3 (0-0.4); EOSINOPHIL % 1.4 % (0.0-4.0); HEMATOCRIT 33.8 % (39.0-51.0); HEMO FLAGS DIFF FINAL; LYMPH % 12.9 % (9.0-44.0); LYMPHOCYTE # 1.9 TH/MM3 (1.0-4.8); MEAN CELL VOLUME 89.9 FL (80.0-100.0); MEAN CORPUSCULAR HEMOGLOBIN 29.5 PG (27.0-34.0); MEAN CORPUSCULAR HGB CONC 32.8 % (32.0-36.0); MONO % 7.5 % (0.0-8.0); NEUT % 77.1 % (16.0-70.0); PLATELET COUNT 374 TH/MM3 (150-450); RED BLOOD COUNT 3.76 MIL/MM3 (4.50-5.90); RED CELL DISTRIBUTION WIDTH 14.1 % (11.6-17.2); WHITE BLOOD COUNT 14.8 TH/MM3 (4.0-11.0)
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
[2017-05-16 10:54] LABS: ALT (GPT) 62 U/L (12-78); ANION GAP 5 MEQ/L (5-15); AST (GOT) 26 U/L (15-37); BICARBONATE 27.6 MEQ/L (21.0-32.0); BLOOD UREA NITROGEN 10 MG/DL (7-18); CHLORIDE 104 MEQ/L (98-107); GLOMERULAR FILTRATION RATE 136 ML/MIN (>89); SODIUM (NA) 137 MEQ/L (136-145)
[2017-05-16 10:56] LABS: ALKALINE PHOSPHATASE 66 U/L (45-117); TOTAL BILIRUBIN ADULT 0.3 MG/DL (0.2-1.0)
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
[2017-05-16 11:38] LABS: ALCOHOL LESS THAN 3 MG/DL (0-5)
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
[2017-05-16 14:11] VITALS: BP 131/69; PULSE 94; RESP 18; O2SAT 100
== END 2017-05-16 14:37 | disposition home or self-care (01) ==
LOC: NEPC 09:41
DX: F43.25 Adjustment disorder with mixed disturbance of emotions and conduct (principal); R68.84 Jaw pain
CPT/HCPCS: 70110; 80053; 80307; 85025; 99284

== ENCOUNTER 2017-12-08 23:53 | Emergency (ER) | payer OTHER ==
[~2017-12-08] VITALS: Ht 188 cm; Wt 70.0 kg
[~2017-12-08 23:53] MED LIST changes: -CLIN1CAP6 PO; +CLIN300C5 PO
[2017-12-09 00:07] VITALS: BP 121/71; PULSE 117; RESP 18; TEMP 98.6; O2SAT 98
[2017-12-09] MEDS ORDERED: ACETAMINOPHEN 500 MG CPLT PO ONE (00:15)
--- NOTE | 2017-12-09 00:20 | PD ---
HPI Chief Complaint: Psychiatric Symptoms Time Seen by Provider: 00:06 Travel History International Travel<30 days: No Contact w/Intl Traveler<30days: No Traveled to known affect area: No History of Present Illness HPI 27-year-old white male presents emergency department under Daigle act by PD. Please responded to a complaint of altercation. Patient allegedly had got into an argument with his significant other. Patient reported to police that he was feeling depressed and having thoughts of wanting to slit his throat. He is placed under a Daigle act. During the intake the patient banged his head multiple times in the ground. No syncope. No neck or back pain no nausea vomiting. No visual changes.. Pain is mild. Patient denies any true suicidal or homicidal ideation. He states that he rarely had made those statements in anger. PFSH Past Medical History Hx Anticoagulant Therapy: No ADHD: No Arthritis: No Asthma: No Autoimmune Disease: No Blood Disorders: No Bipolar Disorder: Yes Anxiety: Yes Depression: Yes Heart Rhythm Problems: No Cancer: No Cardiovascular Problems: No High Cholesterol: No Chemotherapy: No Chest Pain: No Congestive Heart Failure: No COPD: No Cerebrovascular Accident: No Diabetes: No Diminished Hearing: No Endocrine: No GERD: No Glaucoma: No Genitourinary: No Headaches: No Hepatitis: No Hiatal Hernia: No Hypertension: No Immune Disorder: No Implanted Vascular Access Dvce: No Kidney Stones: No Musculoskeletal: No Neurologic: No Psychiatric: Yes (Patient has history of bipolar ) Reproductive: No Respiratory: No Immunizations Current: Yes Migraines: No Myocardial Infarction: No Radiation Therapy: No Renal Failure: No Schizophrenia: Yes Seizures: No Sickle Cell Disease: No Sleep Apnea: No Thyroid Disease: No Ulcer: No Tetanus Vaccination: < 5 Years Past Surgical History Surgical History: No Previous Surgery Abdominal Surgery: No AICD: No Appendectomy: No Arteriovenous Shunt: No Cardiac Surgery: No Cholecystectomy: No Ear Surgery: No Endocrine Surgery: No Eye Surgery: No Genitourinary Surgery: No Gynecologic Surgery: No Insulin Pump: No Joint Replacement: No Neurologic Surgery: No Oral Surgery: No Pacemaker: No Thoracic Surgery: No Other Surgery: No Social History Alcohol Use: Yes (3 BEERS WEEKLY) Tobacco Use: Yes (1 ppd) Substance Use: Yes Allergies-Medications (Allergen,Severity, Reaction): Coded Allergies: penicillin G (Unverified Allergy, Severe, 05/16/17) Uncoded Allergies: DUST MITES (Allergy, Intermediate, SINUS ISSUES, 05/16/17) Reported Meds & Prescriptions Reported Meds & Active Scripts Active Review of Systems General / Constitutional: No: Fever Eyes: No: Visual changes HENT: No: Headaches, Neck Stiffness, Neck Pain, Gingival Bleeding, Dental Difficulties Cardiovascular: No: Chest Pain or Discomfort Respiratory: No: Shortness of Breath Gastrointestinal: No: Abdominal Pain Genitourinary: No: Dysuria Musculoskeletal: No: Pain Skin: No Rash Neurologic: Positive: Headache, No: Weakness, Dizziness, Syncope, Focal Abnormalities, Coordination Problem, Change in Mentation, Slurred Speech, Paresthesia, Seizures, Sensory Disturbance Psychiatric: No: Depression Endocrine: No: Polydipsia Hematologic/Lymphatic: No: Easy Bruising Physical Exam Narrative GENERAL: Well-nourished, well-developed patient. Patient appears to be under the influence of alcohol and/or drugs. SKIN: Warm and dry. HEAD: Patient has 2 soft tissue contusions to the anterior forehead. There are superficial abrasions. No bony step-off. EYES: No scleral icterus. No injection or drainage. ENT: No nasal drainage noted. Mucous membranes pink. Airway patent. NECK: Supple, trachea midline. Moves head freely without obvious discomfort. CARDIOVASCULAR: Regular rate and rhythm without murmurs, gallops, or rubs. RESPIRATORY: Breath sounds equal bilaterally. No accessory muscle use. GASTROINTESTINAL: Abdomen soft, non-tender, nondistended. EXTREMITIES: No cyanosis or edema. BACK: Nontender without obvious deformity. No CVA tenderness. NEURO: Patient is alert and oriented. no sensorimotor deficits. Nonfocal. Normal speech. PSYCH: No delusions. No auditory or visual hallucinations. Data Data Last Documented VS Vital Signs Date Time Temp Pulse Resp B/P (MAP) Pulse Ox O2 Delivery O2 Flow Rate FiO2 12/09/17 00:54 20 12/09/17 00:35 110 118/74 (89) 100 12/09/17 00:07 98.6 Orders Orders Complete Blood Count With Diff (12/09/17 00:13) Comprehensive Metabolic Panel (12/09/17 00:13) Thyroid Stimulating Hormone (12/09/17 00:13) Psych Screen (12/09/17 00:13) Drug Screen, Random Urine (12/09/17 00:13) Alcohol (Ethanol) (12/09/17 00:13) Acetaminophen (Tylenol) (12/09/17 00:15) Ice/Cold Pack (12/09/17 00:13) Labs Laboratory Tests Test 12/09/17 00:18 12/09/17 00:22 White Blood Count 7.2 TH/MM3 Red Blood Count 4.58 MIL/MM3 Hemoglobin 13.5 GM/DL Hematocrit 40.2 % Mean Corpuscular Volume 87.8 FL Mean Corpuscular Hemoglobin 29.5 PG Mean Corpuscular Hemoglobin Concent 33.5 % Red Cell Distribution Width 15.5 % Platelet Count 356 TH/MM3 Mean Platelet Volume 6.9 FL Neutrophils (%) (Auto) 46.6 % Lymphocytes (%) (Auto) 35.8 % Monocytes (%) (Auto) 10.1 % Eosinophils (%) (Auto) 3.8 % Basophils (%) (Auto) 3.7 % Neutrophils # (Auto) 3.3 TH/MM3 Lymphocytes # (Auto) 2.6 TH/MM3 Monocytes # (Auto) 0.7 TH/MM3 Eosinophils # (Auto) 0.3 TH/MM3 Basophils # (Auto) 0.3 TH/MM3 CBC Comment DIFF FINAL Differential Comment Blood Urea Nitrogen 11 MG/DL Creatinine 0.79 MG/DL Random Glucose 92 MG/DL Total Protein 7.1 GM/DL Albumin 3.8 GM/DL Calcium Level 8.1 MG/DL Alkaline Phosphatase 69 U/L Aspartate Amino Transf (AST/SGOT) 29 U/L Alanine Aminotransferase (ALT/SGPT) 41 U/L Total Bilirubin 0.3 MG/DL Sodium Level 143 MEQ/L Potassium Level 3.8 MEQ/L Chloride Level 110 MEQ/L Carbon Dioxide Level 22.4 MEQ/L Anion Gap 11 MEQ/L Estimat Glomerular Filtration Rate 118 ML/MIN Thyroid Stimulating Hormone 3rd Gen 0.818 uIU/ML Ethyl Alcohol Level 168 MG/DL Urine Opiates Screen NEG Urine Barbiturates Screen NEG Urine Amphetamines Screen POS Urine Benzodiazepines Screen NEG Urine Cocaine Screen NEG Urine Cannabinoids Screen NEG MDM Medical Decision Making Medical Screen Exam Complete: Yes Emergency Medical Condition: Yes Medical Record Reviewed: Yes Interpretation(s) Laboratory Tests Test 12/09/17 00:18 12/09/17 00:22 White Blood Count 7.2 TH/MM3 Red Blood Count 4.58 MIL/MM3 Hemoglobin 13.5 GM/DL Hematocrit 40.2 % Mean Corpuscular Volume 87.8 FL Mean Corpuscular Hemoglobin 29.5 PG Mean Corpuscular Hemoglobin Concent 33.5 % Red Cell Distribution Width 15.5 % Platelet Count 356 TH/MM3 Mean Platelet Volume 6.9 FL Neutrophils (%) (Auto) 46.6 % Lymphocytes (%) (Auto) 35.8 % Monocytes (%) (Auto) 10.1 % Eosinophils (%) (Auto) 3.8 % Basophils (%) (Auto) 3.7 % Neutrophils # (Auto) 3.3 TH/MM3 Lymphocytes # (Auto) 2.6 TH/MM3 Monocytes # (Auto) 0.7 TH/MM3 Eosinophils # (Auto) 0.3 TH/MM3 Basophils # (Auto) 0.3 TH/MM3 CBC Comment DIFF FINAL Differential Comment Blood Urea Nitrogen 11 MG/DL Creatinine 0.79 MG/DL Random Glucose 92 MG/DL Total Protein 7.1 GM/DL Albumin 3.8 GM/DL Calcium Level 8.1 MG/DL Alkaline Phosphatase 69 U/L Aspartate Amino Transf (AST/SGOT) 29 U/L Alanine Aminotransferase (ALT/SGPT) 41 U/L Total Bilirubin 0.3 MG/DL Sodium Level 143 MEQ/L Potassium Level 3.8 MEQ/L Chloride Level 110 MEQ/L Carbon Dioxide Level 22.4 MEQ/L Anion Gap 11 MEQ/L Estimat Glomerular Filtration Rate 118 ML/MIN Thyroid Stimulating Hormone 3rd Gen 0.818 uIU/ML Ethyl Alcohol Level 168 MG/DL Urine Opiates Screen NEG Urine Barbiturates Screen NEG Urine Amphetamines Screen POS Urine Benzodiazepines Screen NEG Urine Cocaine Screen NEG Urine Cannabinoids Screen NEG Differential Diagnosis MDM: High Differential diagnoses: Schizophrenia, schizoaffective disorder, bipolar, anxiety, depression, adjustment reaction, mood disorder NOS, ODD, depressive disorder NOS, dementia, dementia with agitation, psychosis NOS, substance induced mood disorder, DMDD, Asperger syndrome, infection,electrolyte abnormality, malingering. Narrative Course Mental health screening discussed with the patient. Psychiatric screen ordered. The patient has been medically cleared. The patient's abrasions are cleansed and dressed by the nursing staff. Patient is given 1 g of Tylenol p.o. for pain. This is medical clearance for psychiatric admission, head contusion, alcohol intoxication, substance abuse Diagnosis Primary Impression: Medical clearance for psychiatric admission Additional Impressions: Head contusions Substance abuse Condition: Stable Imer Downs Dec 09, 2017 00:20
[2017-12-09 00:35] VITALS: BP 118/74; PULSE 110; RESP 20; O2SAT 100
[2017-12-09 00:48] LABS: AUTOMATED NEUTROPHIL # 3.3 TH/MM3 (1.8-7.7); BASOPHIL # 0.3 TH/MM3 (0-0.2); BASOPHIL % 3.7 % (0.0-2.0); EOSINOPHIL # 0.3 TH/MM3 (0-0.4); EOSINOPHIL % 3.8 % (0.0-4.0); HEMATOCRIT 40.2 % (39.0-51.0); HEMOGLOBIN 13.5 GM/DL (13.0-17.0); LYMPH % 35.8 % (9.0-44.0); LYMPHOCYTE # 2.6 TH/MM3 (1.0-4.8); MEAN CELL VOLUME 87.8 FL (80.0-100.0); MEAN CORPUSCULAR HEMOGLOBIN 29.5 PG (27.0-34.0); MEAN CORPUSCULAR HGB CONC 33.5 % (32.0-36.0); MEAN PLATELET VOLUME 6.9 FL (7.0-11.0); MONO % 10.1 % (0.0-8.0); MONOCYTE # 0.7 TH/MM3 (0-0.9); NEUT % 46.6 % (16.0-70.0); PLATELET COUNT 356 TH/MM3 (150-450); RED BLOOD COUNT 4.58 MIL/MM3 (4.50-5.90); RED CELL DISTRIBUTION WIDTH 15.5 % (11.6-17.2); WHITE BLOOD COUNT 7.2 TH/MM3 (4.0-11.0)
[2017-12-09 00:58] LABS: ALBUMIN 3.8 GM/DL (3.4-5.0); ALT (GPT) 41 U/L (12-78); AST (GOT) 29 U/L (15-37); BICARBONATE 22.4 MEQ/L (21.0-32.0); BLOOD UREA NITROGEN 11 MG/DL (7-18); CALCIUM 8.1 MG/DL (8.5-10.1); CHLORIDE 110 MEQ/L (98-107); CREATININE 0.79 MG/DL (0.60-1.30); GLOMERULAR FILTRATION RATE 118 ML/MIN (>89); GLUCOSE,RANDOM 92 MG/DL (74-106); SODIUM (NA) 143 MEQ/L (136-145)
[2017-12-09 01:08] LABS: ALKALINE PHOSPHATASE 69 U/L (45-117); TOTAL BILIRUBIN ADULT 0.3 MG/DL (0.2-1.0); TOTAL PROTEIN 7.1 GM/DL (6.4-8.2)
[2017-12-09 05:50] VITALS: RESP 20
--- NOTE | 2017-12-09 09:50 | PD ---
History of Present Illness Chief Complaint: Psychiatric Symptoms Time Seen by Provider: 09:40 Travel History International Travel<30 Days: No Contact w/Intl Traveler<30days: No Known affected area: No Legal Status Legal Status: Daigle Act Daigle Act Signed By: Dena Chung Daigle Act Comment: 12/08/2017 1130 PM OFC. Lacie GOMEZ #[id number] C/N [id number] History of Present Illness: History of Present Illness HPI 27-year-old white, single, male with history of bipolar disorder, borderline personality disorder, 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 The report alleges that the patient was involved in an altercation with his girlfriend and when law enforcement arrived the patient told the police he was going to slit his own throat and began striking his face and head on the road. The patient upon arrival to the ED presented with blood alcohol level of 168 and his toxicology is positive for amphetamines. The patient was allowed to sober up clinically and presented no behavioral concerns and no suicidality. Patient has had multiple visits to the ED under similar presentation usually involving alcohol or other substance intoxication. He also has had multiple admissions to [facility] as well as to our adolescent unit. During these past admissions substance use seemed to be the predominant factor. Patient is seen. Nurses reports are reviewed. Patient is alert, oriented dressed in [facility] and wear sunglasses. His speech is clear, logical of normal rate and tone. He is clinically sober with no signs of withdrawal. No evidence of any psychosis, no kelly or hypomania. The patient states "I was drinking last night" and was involved in an altercation with his girlfriend and further states " I said some things to the police that should not have said. I did not mean them and I have no intention of harming myself." Patient at this time denies any suicidal or homicidal ideation, intent or plan. Is requesting discharge as he is planning on moving away from his girlfriend and moving in with his mother. Remainder of psychiatric review of systems is negative. PFSH Past Medical History Medical History: Denies Significant Hx Hx Anticoagulant Therapy: No ADHD: No Arthritis: No Asthma: No Autoimmune Disease: No Blood Disorders: No Bipolar Disorder: Yes Anxiety: Yes Depression: Yes Heart Rhythm Problems: No Cancer: No Cardiovascular Problems: No High Cholesterol: No Chemotherapy: No Chest Pain: No Congestive Heart Failure: No COPD: No Cerebrovascular Accident: No Diabetes: No Diminished Hearing: No Endocrine: No GERD: No Glaucoma: No Genitourinary: No Headaches: No Hepatitis: No Hiatal Hernia: No Hypertension: No Immune Disorder: No Implanted Vascular Access Dvce: No Kidney Stones: No Musculoskeletal: No Neurologic: No Psychiatric: Yes (Patient has history of bipolar ) Reproductive: No Respiratory: No Immunizations Current: Yes Migraines: No Myocardial Infarction: No Radiation Therapy: No Renal Failure: No Schizophrenia: Yes Seizures: No Sickle Cell Disease: No Sleep Apnea: No Thyroid Disease: No Ulcer: No Tetanus Vaccination: < 5 Years Influenza Vaccination: No Past Surgical History Surgical History: No Previous Surgery Abdominal Surgery: No AICD: No Appendectomy: No Arteriovenous Shunt: No Cardiac Surgery: No Cholecystectomy: No Ear Surgery: No Endocrine Surgery: No Eye Surgery: No Genitourinary Surgery: No Gynecologic Surgery: No Insulin Pump: No Joint Replacement: No Neurologic Surgery: No Oral Surgery: No Pacemaker: No Thoracic Surgery: No Other Surgery: No Psychiatric History Psychiatric History Hx Psychiatric Treatment: Patient with a hx of bipolar disorder with several visits for adjustment disorder and last inpatient admission being Apr 2017. History of Inpatient Treatment: Yes Guns or firearms in home: No Social History Single, completed high school, unemployed, has been living with his girlfriend for the past 3 years but is planning on moving in with his mother. History of involvement with legal system as a juvenile. Hx Alcohol Use: Yes (18 pk per week) Hx Tobacco Use: Yes (one pack per day) Hx Substance Use: Yes (meth, alcohol) Substance Use Type: Alcohol, Amphetamines-Stimulants, Nicotine/Cigarettes Other Substances Used: 2-3 beers/day, 1ppd. Patient minimizes use of substances Hx of Substance Use Treatment: Yes Family Psychiatric History Negative Allergies-Medications (Allergen,Severity, Reaction): Coded Allergies: penicillin G (Unverified Allergy, Severe, 05/16/17) Uncoded Allergies: DUST MITES (Allergy, Intermediate, SINUS ISSUES, 05/16/17) Reported Meds & Prescriptions Reported Meds & Active Scripts Active No Active Prescriptions or Reported Medications Review of Systems Psychiatric: DENIES: Anxiety, Confusion, Mood changes, Depression, Hallucinations, Agitation, Suicidal Ideation, Homicidal Ideation, Delusions Except as stated in HPI: all other systems reviewed are Neg Mental Status Examination Appearance: Appropriate (Dressed in [facility]) Consciousness: Alert Orientation: x4 Motor Activity: Normal gait Speech: Unremarkable Language: Adequate Fund of Knowledge: Adequate Attention and Concentration: Adequate Memory: Unremarkable Mood: Appropriate Affect: Appropriate Thought Process & Associations: Intact, Logical, Goal directed Thought Content: Appropriate Hallucination Type: None Delusion Type: None Suicidal Ideation: No Suicidal Plan: No Suicidal Intention: No Homicidal Ideation: No Homicidal Plan: No Homicidal Intention: No Insight: Poor Judgment: Impulsive MDM Medical Decision Making Medical Record Reviewed: Yes Assessment/Plan 27-year-old white, single, male with history of bipolar disorder, borderline personality disorder, 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 The report alleges that the patient was involved in an altercation with his girlfriend and when law enforcement arrived the patient told the police he was going to slit his own throat and began striking his face and head on the road. The patient upon arrival to the ED presented with blood alcohol level of 168 and his toxicology is positive for amphetamines. The patient was allowed to sober up clinically and presented no behavioral concerns and no suicidality. The patient at this time is clinically sober and presents no evidence of any unstable mental illness. He denies any suicidal or homicidal ideation, intent or plan. The patient is requesting discharge and he presents no criteria to keep him here against his well. He minimizes his use of alcohol and substances at this time. He is provided psychoeducation. Psychiatrically clear for discharge from the ED. BA is lifted. Orders Orders Complete Blood Count With Diff (12/09/17 00:13) Comprehensive Metabolic Panel (12/09/17 00:13) Thyroid Stimulating Hormone (12/09/17 00:13) Psych Screen (12/09/17 00:13) Drug Screen, Random Urine (12/09/17 00:13) Alcohol (Ethanol) (12/09/17 00:13) Acetaminophen (Tylenol) (12/09/17 00:15) Ice/Cold Pack (12/09/17 00:13) Diet Regular Basic (12/09/17 Breakfast) Results Vital Signs Date Time Temp Pulse Resp B/P (MAP) Pulse Ox O2 Delivery O2 Flow Rate FiO2 12/09/17 05:50 20 12/09/17 00:54 20 12/09/17 00:35 110 20 118/74 (89) 100 12/09/17 00:07 98.6 117 18 121/71 (88) 98 Laboratory Tests Test 12/09/17 00:18 12/09/17 00:22 White Blood Count 7.2 Red Blood Count 4.58 Hemoglobin 13.5 Hematocrit 40.2 Mean Corpuscular Volume 87.8 Mean Corpuscular Hemoglobin 29.5 Mean Corpuscular Hemoglobin Concent 33.5 Red Cell Distribution Width 15.5 Platelet Count 356 Mean Platelet Volume 6.9 Neutrophils (%) (Auto) 46.6 Lymphocytes (%) (Auto) 35.8 Monocytes (%) (Auto) 10.1 Eosinophils (%) (Auto) 3.8 Basophils (%) (Auto) 3.7 Neutrophils # (Auto) 3.3 Lymphocytes # (Auto) 2.6 Monocytes # (Auto) 0.7 Eosinophils # (Auto) 0.3 Basophils # (Auto) 0.3 CBC Comment DIFF FINAL Differential Comment Blood Urea Nitrogen 11 Creatinine 0.79 Random Glucose 92 Total Protein 7.1 Albumin 3.8 Calcium Level 8.1 Alkaline Phosphatase 69 Aspartate Amino Transf (AST/SGOT) 29 Alanine Aminotransferase (ALT/SGPT) 41 Total Bilirubin 0.3 Sodium Level 143 Potassium Level 3.8 Chloride Level 110 Carbon Dioxide Level 22.4 Anion Gap 11 Estimat Glomerular Filtration Rate 118 Thyroid Stimulating Hormone 3rd Gen 0.818 Ethyl Alcohol Level 168 Urine Opiates Screen NEG Urine Barbiturates Screen NEG Urine Amphetamines Screen POS Urine Benzodiazepines Screen NEG Urine Cocaine Screen NEG Urine Cannabinoids Screen NEG Diagnosis Primary Impression: Substance induced mood disorder Additional Impressions: Alcohol abuse Amphetamine abuse Psychiatrically Cleared: Yes Med/ Other Pt Specific Info: No Meds Exist/No RX given Prescriptions No Active Prescriptions or Reported Meds Disposition: 01 DISCHARGE HOME Condition: Stable Problem Qualifiers Lindsay Bryant Dec 09, 2017 09:50
--- NOTE | 2017-12-09 10:09 | PD ---
Physical Exam Time Seen by Provider: 10:08 SUSANNA Wyatt has evaluated patient, lifted the Daigle act and cleared the patient for discharge. Data Data Last Documented VS Vital Signs Date Time Temp Pulse Resp B/P (MAP) Pulse Ox O2 Delivery O2 Flow Rate FiO2 12/09/17 05:50 20 12/09/17 00:35 110 118/74 (89) 100 12/09/17 00:07 98.6 Orders Orders Complete Blood Count With Diff (12/09/17 00:13) Comprehensive Metabolic Panel (12/09/17 00:13) Thyroid Stimulating Hormone (12/09/17 00:13) Psych Screen (12/09/17 00:13) Drug Screen, Random Urine (12/09/17 00:13) Alcohol (Ethanol) (12/09/17 00:13) Acetaminophen (Tylenol) (12/09/17 00:15) Ice/Cold Pack (12/09/17 00:13) Diet Regular Basic (12/09/17 Breakfast) Labs Laboratory Tests Test 12/09/17 00:18 12/09/17 00:22 White Blood Count 7.2 TH/MM3 Red Blood Count 4.58 MIL/MM3 Hemoglobin 13.5 GM/DL Hematocrit 40.2 % Mean Corpuscular Volume 87.8 FL Mean Corpuscular Hemoglobin 29.5 PG Mean Corpuscular Hemoglobin Concent 33.5 % Red Cell Distribution Width 15.5 % Platelet Count 356 TH/MM3 Mean Platelet Volume 6.9 FL Neutrophils (%) (Auto) 46.6 % Lymphocytes (%) (Auto) 35.8 % Monocytes (%) (Auto) 10.1 % Eosinophils (%) (Auto) 3.8 % Basophils (%) (Auto) 3.7 % Neutrophils # (Auto) 3.3 TH/MM3 Lymphocytes # (Auto) 2.6 TH/MM3 Monocytes # (Auto) 0.7 TH/MM3 Eosinophils # (Auto) 0.3 TH/MM3 Basophils # (Auto) 0.3 TH/MM3 CBC Comment DIFF FINAL Differential Comment Blood Urea Nitrogen 11 MG/DL Creatinine 0.79 MG/DL Random Glucose 92 MG/DL Total Protein 7.1 GM/DL Albumin 3.8 GM/DL Calcium Level 8.1 MG/DL Alkaline Phosphatase 69 U/L Aspartate Amino Transf (AST/SGOT) 29 U/L Alanine Aminotransferase (ALT/SGPT) 41 U/L Total Bilirubin 0.3 MG/DL Sodium Level 143 MEQ/L Potassium Level 3.8 MEQ/L Chloride Level 110 MEQ/L Carbon Dioxide Level 22.4 MEQ/L Anion Gap 11 MEQ/L Estimat Glomerular Filtration Rate 118 ML/MIN Thyroid Stimulating Hormone 3rd Gen 0.818 uIU/ML Ethyl Alcohol Level 168 MG/DL Urine Opiates Screen NEG Urine Barbiturates Screen NEG Urine Amphetamines Screen POS Urine Benzodiazepines Screen NEG Urine Cocaine Screen NEG Urine Cannabinoids Screen NEG MDM Supervised Visit with [facility]AD[facility]: No Narrative Course SUSANNA Montoya has evaluated patient, lifted the Daigle act and cleared the patient for discharge. Patient contracts safety. Denies suicidal or homicidal ideations. Patient will be provided community resource packet to [facility] for follow-up. Has friends and family for support. Patient was medically cleared by alternate provider prior to psych screening. Patient has been evaluated by psychiatry and and is now cleared for discharge. Diagnosis Primary Impression: Substance induced mood disorder Additional Impressions: Alcohol abuse Amphetamine abuse Referrals: [facility] (Out patient) [facility] Primary Care Physician Psychiatrist Deepa [facility] Patient Instructions: Abuse of Alcohol (ED), Alcohol Dependence (ED), Alcohol Intoxication (ED), General Instructions, Mood Disorders (ED), Polysubstance Abuse (ED) Additional Instruction: Contract safety to your self and others Follow-up with psychiatry Follow-up with primary care provider Follow-up with [facility] Return to the emergency department immediately with worsening of symptoms Med/Other Pt SpecificInfo: No Change to Meds, No Meds Exist/No RX given Scripts No Active Prescriptions or Reported Meds Disposition: 01 DISCHARGE HOME Condition: Stable Helen Gilliam Dec 09, 2017 10:09
== END 2017-12-09 10:38 | disposition home or self-care (01) ==
LOC: NEDAMB 23:53 → NEPJ 12-09 10:38
DX: F15.14 Other stimulant abuse with stimulant-induced mood disorder (principal); F10.10 Alcohol abuse, uncomplicated; F17.200 Nicotine dependence, unspecified, uncomplicated; Y90.6 Blood alcohol level of 120-199 mg/100 ml; S00.83XA Contusion of other part of head, initial encounter; W22.09XA Striking against other stationary object, initial encounter
CPT/HCPCS: 80053; 80307; 84443; 85025; 99283

== ENCOUNTER 2017-12-20 19:56 | Inpatient (IN) | payer OTHER ==
[~2017-12-20] VITALS: Ht 188 cm; Wt 64.3 kg
[2017-12-20 20:02] VITALS: BP 134/76; PULSE 99; RESP 14; TEMP 98; O2SAT 99
[2017-12-20] MEDS ORDERED: SODIUM CHLOR 0.9% 1000 ML INJ 1,000 ML IV ONE (20:09)
[2017-12-20] MEDS ORDERED: SODIUM CHLORIDE 0.9% FLUSH 10 ML FLUSH IVF PRN (20:15)
--- NOTE | 2017-12-20 20:16 | PD ---
HPI Chief Complaint: Psychiatric Symptoms Time Seen by Provider: 20:09 Travel History International Travel<30 days: No Contact w/Intl Traveler<30days: No Traveled to known affect area: No History of Present Illness HPI The patient is a 27 year old male who presents to the [facility] emergency department with a history of attempting suicide approximately 1 hour prior to arrival at 7 PM by drinking and approximated 10 ounces of Drano Max Gel with active ingredients that include bleach, sodium hypochlorite, sodium hydroxide, and sodium silicate. The patient reports that he has had nausea and vomiting 2. He reports having a sore throat and midepigastric abdominal pain. He denies having any chest pain or shortness of breath. The patient reports that he is also been drinking alcohol today. He reports that he drinks alcohol on a daily basis, however he will not specify how much he drinks per day. He reports having history of bipolar disorder. He reports that he is not on any medications for this as he forgets to go to his appointments. He reports that he has had suicidal ideations for a long-standing period of time. He reports that he has had multiple suicide attempts. The patient reports that he self mutilates with cutting. A review of systems otherwise, the patient denies having any known recent fevers, diarrhea, urinary symptoms, or neurologic symptoms. [facility] Past Medical History Narrative Medical The patient's past medical history is significant for bipolar disorder. Hx Anticoagulant Therapy: No ADHD: No Arthritis: No Asthma: No Autoimmune Disease: No Blood Disorders: No Bipolar Disorder: Yes Anxiety: Yes Depression: Yes Heart Rhythm Problems: No Cancer: No Cardiovascular Problems: No High Cholesterol: No Chemotherapy: No Chest Pain: No Congestive Heart Failure: No COPD: No Cerebrovascular Accident: No Diabetes: No Diminished Hearing: No Endocrine: No GERD: No Glaucoma: No Genitourinary: No Headaches: No Hepatitis: No Hiatal Hernia: No Hypertension: No Immune Disorder: No Implanted Vascular Access Dvce: No Kidney Stones: No Musculoskeletal: No Neurologic: No Psychiatric: Yes (Patient has history of bipolar ) Reproductive: No Respiratory: No Immunizations Current: Yes Migraines: No Myocardial Infarction: No Radiation Therapy: No Renal Failure: No Schizophrenia: Yes Seizures: No Sickle Cell Disease: No Sleep Apnea: No Thyroid Disease: No Ulcer: No Past Surgical History Narrative Surgical The patient's past surgical history is reportedly none. Abdominal Surgery: No AICD: No Appendectomy: No Arteriovenous Shunt: No Cardiac Surgery: No Cholecystectomy: No Ear Surgery: No Endocrine Surgery: No Eye Surgery: No Genitourinary Surgery: No Gynecologic Surgery: No Insulin Pump: No Joint Replacement: No Neurologic Surgery: No Oral Surgery: No Pacemaker: No Thoracic Surgery: No Other Surgery: No Social History Alcohol Use: Yes (18 pk per week) Tobacco Use: Yes (one pack per day) Substance Use: Yes (meth, alcohol) Allergies-Medications (Allergen,Severity, Reaction): Coded Allergies: penicillin G (Unverified Allergy, Severe, 12/20/17) Uncoded Allergies: DUST MITES (Allergy, Intermediate, SINUS ISSUES, 05/16/17) Reported Meds & Prescriptions Reported Meds & Active Scripts Active No Active Prescriptions or Reported Medications Review of Systems Except as stated in HPI: all other systems reviewed are Neg General / Constitutional: No: Fever Eyes: No: Visual changes HENT: Positive: Sore Throat, No: Headaches, Congestion Cardiovascular: No: Chest Pain or Discomfort Respiratory: Positive: Cough, No: Shortness of Breath Gastrointestinal: Positive: Nausea, Vomiting, Abdominal Pain Genitourinary: No: Dysuria Musculoskeletal: No: Pain Skin: No Rash Neurologic: No: Weakness, Focal Abnormalities, Change in Mentation, Slurred Speech, Sensory Disturbance Psychiatric: Positive: Depression, Suicidal Ideations, Mood Disorder, Substance Abuse Endocrine: No: Polydipsia Hematologic/Lymphatic: No: Easy Bruising Physical Exam Narrative General: The patient is a well-developed well-nourished male, belligerent on examination , intermittently cursing stating that he "cannot even kill myself right". He repeatedly states "I am invincible". Head and Neck exam: Head is normocephalic atraumatic. Eyes: EOMI, pupils are equal round and reactive to light. Nose: Midline septum with pink mucous membranes Mouth: Dentition unremarkable. Moist mucus membranes. Posterior oropharynx is mildly erythematous. No tonsillar hypertrophy. Uvula midline. Airway patent. Neck: No palpable lymphadenopathy. No nuchal rigidity. No thyromegaly. Cardiovascular: Sinus tachycardia in the 1 teens without murmurs, gallops, or rubs. No pulse deficit to the extremities on simultaneous auscultation and palpation of his radial artery. Lungs: Clear to auscultation bilaterally. No wheezes, rhonchi, or rales. Abdomen: Soft, without tenderness to palpation in all 4 quadrants of the abdomen. No guarding, rebound, or rigidity. Normal bowel sounds are audible. No tenderness on palpation of McBurney's point. Extremities: No clubbing, cyanosis, or edema. 2+ pulses in all 4 extremities. No calf tenderness on palpation peer Back: No spinous process tenderness to palpation. No costovertebral angle tenderness to palpation. Neurologic Exam: Grossly nonfocal. Skin Exam: No rash noted. Intact skin that is warm and dry. The patient has scars noted on bilateral ventral wrist from previous self-mutilation Data Data Last Documented VS Vital Signs Date Time Temp Pulse Resp B/P (MAP) Pulse Ox O2 Delivery O2 Flow Rate FiO2 12/20/17 22:01 86 14 111/70 (84) 99 12/20/17 21:05 Room Air 12/20/17 20:02 98.0 Orders Orders Electrocardiogram (12/20/17 20:09) Complete Blood Count With Diff (12/20/17 20:09) Comprehensive Metabolic Panel (12/20/17 20:09) Prothrombin Time / Inr (Pt) (12/20/17 20:09) Act Partial Throm Time (Ptt) (12/20/17 20:09) Osmolality,Serum (12/20/17 20:09) Osmolality, Urine (12/20/17 20:09) Urinalysis - C+S If Indicated (12/20/17 20:09) Chest, Single Ap (12/20/17 20:09) Blood Glucose (12/20/17 20:09) Iv Access Insert/Monitor (12/20/17 20:09) Ecg Monitoring (12/20/17 20:09) Oximetry (12/20/17 20:09) Sodium Chloride 0.9% Flush (Ns Flush) (12/20/17 20:15) Sodium Chlor 0.9% 1000 Ml Inj (Ns 1000 M (12/20/17 20:09) Call Poison Control (12/20/17 20:09) Drug Screen, Random Urine (12/20/17 20:09) Alcohol (Ethanol) (12/20/17 20:09) Salicylates (Aspirin) (12/20/17 20:09) Tylenol (Acetaminophen) (12/20/17 20:09) Calcium Gluconate Inj (Calcium Gluconate (12/20/17 22:00) Admit Order (Ed Use Only) (12/20/17 22:01) Consult Gastroenterology (12/20/17 ) Labs Laboratory Tests Test 12/20/17 20:15 White Blood Count 5.9 TH/MM3 Red Blood Count 5.17 MIL/MM3 Hemoglobin 15.2 GM/DL Hematocrit 45.0 % Mean Corpuscular Volume 87.1 FL Mean Corpuscular Hemoglobin 29.3 PG Mean Corpuscular Hemoglobin Concent 33.7 % Red Cell Distribution Width 15.7 % Platelet Count 358 TH/MM3 Mean Platelet Volume 6.7 FL Neutrophils (%) (Auto) 53.7 % Lymphocytes (%) (Auto) 38.2 % Monocytes (%) (Auto) 5.7 % Eosinophils (%) (Auto) 1.2 % Basophils (%) (Auto) 1.2 % Neutrophils # (Auto) 3.2 TH/MM3 Lymphocytes # (Auto) 2.3 TH/MM3 Monocytes # (Auto) 0.3 TH/MM3 Eosinophils # (Auto) 0.1 TH/MM3 Basophils # (Auto) 0.1 TH/MM3 CBC Comment DIFF FINAL Differential Comment Prothrombin Time 9.6 SEC Prothromb Time International Ratio 0.9 RATIO Activated Partial Thromboplast Time 21.6 SEC Blood Urea Nitrogen 9 MG/DL Creatinine 0.72 MG/DL Random Glucose 78 MG/DL Total Protein 6.7 GM/DL Albumin 3.2 GM/DL Calcium Level 7.2 MG/DL Alkaline Phosphatase 62 U/L Aspartate Amino Transf (AST/SGOT) 34 U/L Alanine Aminotransferase (ALT/SGPT) 29 U/L Total Bilirubin 0.3 MG/DL Sodium Level 145 MEQ/L Potassium Level 4.7 MEQ/L Chloride Level 116 MEQ/L Carbon Dioxide Level 21.3 MEQ/L Anion Gap 8 MEQ/L Estimat Glomerular Filtration Rate 131 ML/MIN Serum Osmolality 348 MOSM/KG Protein Corrected Calcium 7.4 MG/DL Salicylates Level 2.4 MG/DL Acetaminophen Level LESS THAN 2.0 MCG/ML Ethyl Alcohol Level 168 MG/DL MDM Medical Decision Making Medical Screen Exam Complete: Yes Emergency Medical Condition: Yes Medical Record Reviewed: Yes Differential Diagnosis Suicide attempt by alkali ingestion, versus suicidal gesture Narrative Course During the course of the patient's emergency department visit, the patient's history, examination, and differential diagnosis were reviewed with the patient. The patient was placed on a nuclear monitoring technician with oximetry and frequent blood pressure monitoring. The patient had IV access obtained and blood work sent for analysis. The patient had a EKG done on arrival that shows a sinus rhythm heart rate of 98, QRS duration is 82 ms, QTC [address] segment elevation or depression. Poison control will be called regarding this patient's case. They recommended supportive measures and close monitoring of the patient's airway. The patient was initially provided patient was given a cup of water as the patient reports that his nausea is controlled. Patient was started on normal saline IV fluids. During the patient's observation, the patient became belligerent and agitated, he became aggressive with the emergency department staff. The patient was restrained for his and the staff safety. The patient calmed down quickly and the restraints were able to be removed. The patient's laboratory studies were reviewed and remarkable for: 12/20/17 20:15 Total Protein 6.7, Albumin 3.2 L, Calcium Level 7.2 *L, Alkaline Phosphatase 62 , Aspartate Amino Transf (AST/SGOT) 34, Alanine Aminotransferase (ALT/SGPT) 29, Total Bilirubin 0.3, given the patient's low calcium, the patient was given 1 g of calcium gluconate IV. PT 9.6, PTT 21.6, urine drug screen is negative, salicylate 2.4, acetaminophen less than 2, alcohol level 168, urinalysis is unremarkable per Radiology studies were reviewed and remarkable for a chest x-ray that shows no evidence of acute cardiopulmonary disease. A call was placed out to the sports medicine coordinator on-call, I spoke to . He agreed to see the patient in consultation for endoscopy. The patient's case was then discussed with Dr. Cesar, the geological specialist on-call who did agree to admit the patient for further evaluation and treatment at this time The patient's results were discussed with the patient, including the plan of care. I explained that further testing and/ or monitoring is indicated based on the patient's history, examination, and/ or laboratory findings. Therefore, I recommended admission for additional evaluation. The patient expressed understanding and was agreeable with this plan. The patient was admitted to the hospital in guarded condition and sent to a bed under the care of the intensive care unit. Critical Care Narrative Aggregate critical care time was 31 minutes. Time to perform other separately billable procedures was not included in the critical care time. My time did not include minutes spent treating any other patients simultaneously or on activities that did not directly contribute to the patient's treatment. The services I provided to this patient were to treat and/or prevent clinically significant deterioration that could result in: Respiratory failure, versus esophageal perforation I provided critical care services requiring my management, as noted below: Chart data review, documentation time, medication orders and management, vital sign assessments/reviewing monitor data, ordering and reviewing lab tests, ordering and interpreting/reviewing x-rays and diagnostic studies, care of the patient and discussion of the patient with the admitting physicians. Physician Communication Physician Communication The patient's case including history, pertinent physical examination findings, and laboratory studies were discussed with Dr. Cesar, the geological specialist, and Dr. Henry, the sports medicine coordinator. It was agreed that the patient would be admitted to the geological specialist service. Diagnosis Primary Impression: Ingestion of caustic substance Qualified Codes: T54.92XA - Toxic effect of unspecified corrosive substance, intentional self-harm, initial encounter Admitting Information Admitting Physician Requests: Admit Scripts No Active Prescriptions or Reported Meds Denisa Antonio MD Dec 20, 2017 20:16
[2017-12-20 20:31] LABS: AUTOMATED NEUTROPHIL # 3.2 TH/MM3 (1.8-7.7); BASOPHIL # 0.1 TH/MM3 (0-0.2); BASOPHIL % 1.2 % (0.0-2.0); EOSINOPHIL # 0.1 TH/MM3 (0-0.4); EOSINOPHIL % 1.2 % (0.0-4.0); HEMOGLOBIN 15.2 GM/DL (13.0-17.0); LYMPH % 38.2 % (9.0-44.0); LYMPHOCYTE # 2.3 TH/MM3 (1.0-4.8); MEAN CELL VOLUME 87.1 FL (80.0-100.0); MEAN CORPUSCULAR HEMOGLOBIN 29.3 PG (27.0-34.0); MEAN CORPUSCULAR HGB CONC 33.7 % (32.0-36.0); MEAN PLATELET VOLUME 6.7 FL (7.0-11.0); MONO % 5.7 % (0.0-8.0); MONOCYTE # 0.3 TH/MM3 (0-0.9); NEUT % 53.7 % (16.0-70.0); PLATELET COUNT 358 TH/MM3 (150-450); RED BLOOD COUNT 5.17 MIL/MM3 (4.50-5.90); RED CELL DISTRIBUTION WIDTH 15.7 % (11.6-17.2); WHITE BLOOD COUNT 5.9 TH/MM3 (4.0-11.0)
[2017-12-20 20:38] LABS: INTERNATIONAL NORMALIZED RATIO 0.9 RATIO; PROTHROMBIN TIME - PATIENT 9.6 SEC (9.8-11.6)
[2017-12-20 20:51] LABS: ALBUMIN 3.2 GM/DL (3.4-5.0); ALKALINE PHOSPHATASE 62 U/L (45-117); ALT (GPT) 29 U/L (12-78); AST (GOT) 34 U/L (15-37); BICARBONATE 21.3 MEQ/L (21.0-32.0); BLOOD UREA NITROGEN 9 MG/DL (7-18); CALCIUM 7.2 MG/DL (8.5-10.1); CHLORIDE 116 MEQ/L (98-107); CREATININE 0.72 MG/DL (0.60-1.30); GLOMERULAR FILTRATION RATE 131 ML/MIN (>89); GLUCOSE,RANDOM 78 MG/DL (74-106); SODIUM (NA) 145 MEQ/L (136-145); TOTAL BILIRUBIN ADULT 0.3 MG/DL (0.2-1.0); TOTAL PROTEIN 6.7 GM/DL (6.4-8.2)
--- NOTE | 2017-12-20 20:55 | RADRPT ---
EXAM DATE/TIME: 12/20/2017 20:26 [facility] COMPARISON: CHEST SINGLE AP, May 02, 2016, 2:44. INDICATIONS : Chest pain. MEDICAL HISTORY : None. SURGICAL HISTORY : None. ENCOUNTER: Initial ACUITY: 1 day PAIN SCORE: Non-responsive. LOCATION: Bilateral chest FINDINGS: A single view of the chest demonstrates the lungs to be symmetrically aerated without evidence of mas s, infiltrate or effusion. The cardiomediastinal contours are unremarkable. Osseous structures are intact. CONCLUSION: No acute disease. Imer Huynh MD on December 20, 2017 at 20:53 Board Certified Radiologist. This report was verified electronically.
[2017-12-20 21:00] VITALS: BP 125/86; PULSE 88; RESP 14; O2SAT 100
[2017-12-20 21:05] VITALS: O2SAT 97
[2017-12-20 21:23] LABS: ACETAMINOPHEN LESS THAN 2.0 MCG/ML (10.0-30.0); CALCIUM-PROTEIN CORRECTED 7.4 MG/DL (8.5-10.1)
--- NOTE | 2017-12-20 21:43 | EKG ---
Date Performed: 12/20/2017 Time Performed: 20:09:47 PTAGE: 27 years EKG: Sinus rhythm POSSIBLE LEFT ATRIAL ENLARGEMENT No significant change from prior electrocardiogram. PREVIOUS TRACING : 01/14/2014 15.38 DOCTOR: Tim Garcia Interpretating Date/Time 12/20/2017 21:42:34
[2017-12-20] MEDS ORDERED: CALCIUM GLUCONATE INJ 1 GM in DEXTROSE 5% IN WATER 100ML INJ 100 ML IV ONE ×2 (22:00)
[2017-12-20 22:01] VITALS: BP 111/70; PULSE 86; RESP 14; O2SAT 99
--- NOTE | 2017-12-20 22:52 | HHI.HP ---
HPI Service Critical Care Medicine Primary Care Physician Unknown Admission Diagnosis Intentional Caustic alkali ingestion Diagnosis: Travel History International Travel<30 Days: No Contact w/Intl Traveler <30 Da: No Traveled to Known Affected Are: No History of Present Illness 27 year old male with past medical history of bipolar disorder presents with a history of attempting suicide approximately 1 hour prior to arrival at 7 PM by drinking 10 ounces of Drano Max Gel with active ingredients that include bleach , sodium hypochlorite, sodium hydroxide, and sodium silicate. The patient reports that he has had nausea and vomiting 2., a sore throat and midepigastric abdominal pain. He denies having any chest pain or shortness of breath. The patient reports that he has also been drinking alcohol today. He reports that he drinks alcohol on a daily basis, however he will not specify how much he drinks per day. He reports that he stopped taking his bipolar medications as he forgets to go to his appointments. He reports that he has had suicidal ideations for a long-standing period of time. He reports that he has had multiple suicide attempts. The patient reports that he self mutilates with cutting. The Poison Control Center was already contacted by emergency department attending. Review of Systems Constitutional: DENIES: Diaphoretic episodes, Fatigue, Fever, Weight gain, Weight loss, Chills, Dizziness, Change in appetite, Night Sweats Endocrine: DENIES: Heat/cold intolerance, Polydipsia, Polyuria, Polyphagia Eyes: DENIES: Blurred vision, Diplopia, Eye inflammation, Eye pain, Vision loss , Photosensitivity, Double Vision Ears, nose, mouth, throat: DENIES: Tinnitus, Hearing loss, Vertigo, Nasal discharge, Oral lesions, Throat pain, Hoarseness, Ear Pain, Running Nose, Epistaxis, Sinus Pain, Toothache, Odynophagia Respiratory: DENIES: Apneas, Cough, Snoring, Wheezing, Hemoptysis, Sputum production, Shortness of breath Cardiovascular: DENIES: Chest pain, Palpitations, Syncope, Dyspnea on Exertion , PND, Lower Extremity Edema, Orthopnea, Claudication Gastrointestinal: COMPLAINS OF: Abdominal pain, Nausea, Vomiting, Difficulty Swallowing, DENIES: Black stools, Bloody stools, Constipation, Diarrhea, Anorexia Genitourinary: DENIES: Sexual dysfunction, Urinary frequency, Urinary incontinence, Urgency, Hematuria, Dysuria, Nocturia, Penile Discharge, Testicular Pain, Testicular Swelling Musculoskeletal: DENIES: Joint pain, Muscle aches, Stiffness, Joint Swelling, Back pain, Neck pain Integumentary: DENIES: Abnormal pigmentation, Nail changes, Pruritus, Rash Hematologic/lymphatic: DENIES: Bruising, Lymphadenopathy Neurologic: DENIES: Abnormal gait, Headache, Localized weakness, Paresthesias, Seizures, Speech Problems, Tremor, Poor Balance Psychiatric: COMPLAINS OF: Anxiety, Depression, Suicidal Ideation, DENIES: Confusion, Mood changes, Hallucinations, Agitation, Homicidal Ideation, Delusions Past Family Social History Allergies: Coded Allergies: penicillin G (Unverified Allergy, Severe, 12/20/17) Uncoded Allergies: DUST MITES (Allergy, Intermediate, SINUS ISSUES, 05/16/17) Past Medical History Bipolar disorder Past Surgical History None Reported Medications Reported Meds & Active Scripts Active No Active Prescriptions or Reported Medications Active Ordered Medications Current Medications Medications (Trade) Dose Ordered Sig/Mara Route PRN Reason Start Time Stop Time Status Last Admin Dose Admin Sodium Chloride (NS Flush) 2 ml UNSCH PRN IVF FLUSH AFTER USING IV ACCESS 12/20/17 20:15 Sodium Chloride 1,000 ml @ 124 mls/hr Q8H4M IV 12/20/17 22:46 12/20/17 23:24 Sodium Chloride (NS Flush) 2 ml UNSCH PRN IV FLUSH FLUSH AFTER USING IV ACCESS 12/20/17 23:00 Sodium Chloride (NS Flush) 2 ml BID IV FLUSH 12/21/17 09:00 Acetaminophen (Tylenol) 650 mg Q6H PRN PO PAIN 1-10 AND/OR FEVER >101F 12/20/17 23:00 Famotidine (Pepcid Inj) 20 mg Q12HR IV PUSH 12/21/17 09:00 Lorazepam (Ativan Inj) 1 mg Q3H PRN IV PUSH Agitation/Sedation 12/20/17 23:00 Ondansetron HCl (Zofran Inj) 4 mg Q6H PRN IV PUSH NAUSEA OR VOMITING 12/20/17 23:00 Albuterol/ Ipratropium (Duoneb Neb) 1 ampule Q2HR NEB PRN INH WHEEZING 12/20/17 23:00 Miscellaneous Information ([facility]) 1 [id number] XX 12/20/17 23:00 Chlorhexidine Gluconate (Chlorhexidine 2% Cloth) 3 pack Taper DAILY@04 TOP 12/21/17 04:00 12/17/18 03:59 Chlorhexidine Gluconate (Chlorhexidine 2% Cloth) 3 pack UNSCH PRN TOP HYGIENIC CARE 12/20/17 23:00 Senna/Docusate Sodium (Dania-Colace) 1 tab BID PO 12/21/17 09:00 Magnesium Hydroxide (Milk Of Magnesia Liq) 30 ml Q12H PRN PO Mild constipation 12/20/17 23:00 Sennosides (Senokot) 17.2 mg Q12H PRN PO Moderate constipation 12/20/17 23:00 Bisacodyl (Dulcolax Supp) 10 mg DAILY PRN RECTAL SEVERE CONSITIPATION 12/20/17 23:00 Lactulose (Lactulose Liq) 30 ml DAILY PRN PO SEVERE CONSITIPATION 12/20/17 23:00 Family History No family history significant of coronary artery disease Social History Denies tobacco or illicit drug abuse Drinks alcohol daily Physical Exam Vital Signs Vital Signs Date Time Temp Pulse Resp B/P (MAP) Pulse Ox O2 Delivery O2 Flow Rate FiO2 12/20/17 22:01 86 14 111/70 (84) 99 12/20/17 21:05 97 Room Air 12/20/17 21:00 88 14 125/86 (99) 100 12/20/17 20:02 98.0 99 14 134/76 (95) 99 Physical Exam GENERAL: Well-nourished, well-developed patient. SKIN: Warm and dry. HEAD: Normocephalic. EYES: No scleral icterus. No injection or drainage. NECK: Supple, trachea midline. No JVD or lymphadenopathy. CARDIOVASCULAR: Regular rate and rhythm without murmurs, gallops, or rubs. RESPIRATORY: Breath sounds equal bilaterally. No accessory muscle use. GASTROINTESTINAL: Abdomen soft, non-tender, nondistended. MUSCULOSKELETAL: No cyanosis, or edema. BACK: Nontender without obvious deformity. NEURO EXAM: GCS: 15 Mental Status: The patient is alert and oriented to person, place, and time with normal speech. Cranial Nerves: Visual acuity intact bilaterally. Visual hess normal in all quadrants. Pupils are round, reactive to light. Extraocular movements are intact without ptosis. Hearing is normal bilaterally. Voice is normal. Tongue protrudes midline and moves symmetrically. Reflexes: Biceps, patellar, and Achilles are 2/4 bilaterally. No clonus. Sensation: Sensation is intact bilaterally to pain and light touch. Two-point discrimination is intact. Motor: Good muscle tone. Strength is 5/5 bilaterally. Cerebellar: [id number] and [id number] test normal bilaterally. Laboratory Laboratory Tests Test 12/20/17 20:15 White Blood Count 5.9 Red Blood Count 5.17 Hemoglobin 15.2 Hematocrit 45.0 Mean Corpuscular Volume 87.1 Mean Corpuscular Hemoglobin 29.3 Mean Corpuscular Hemoglobin Concent 33.7 Red Cell Distribution Width 15.7 Platelet Count 358 Mean Platelet Volume 6.7 Neutrophils (%) (Auto) 53.7 Lymphocytes (%) (Auto) 38.2 Monocytes (%) (Auto) 5.7 Eosinophils (%) (Auto) 1.2 Basophils (%) (Auto) 1.2 Neutrophils # (Auto) 3.2 Lymphocytes # (Auto) 2.3 Monocytes # (Auto) 0.3 Eosinophils # (Auto) 0.1 Basophils # (Auto) 0.1 CBC Comment DIFF FINAL Differential Comment Prothrombin Time 9.6 Prothromb Time International Ratio 0.9 Activated Partial Thromboplast Time 21.6 Blood Urea Nitrogen 9 Creatinine 0.72 Random Glucose 78 Total Protein 6.7 Albumin 3.2 Calcium Level 7.2 Alkaline Phosphatase 62 Aspartate Amino Transf (AST/SGOT) 34 Alanine Aminotransferase (ALT/SGPT) 29 Total Bilirubin 0.3 Sodium Level 145 Potassium Level 4.7 Chloride Level 116 Carbon Dioxide Level 21.3 Anion Gap 8 Estimat Glomerular Filtration Rate 131 Serum Osmolality 348 Protein Corrected Calcium 7.4 Salicylates Level 2.4 Acetaminophen Level LESS THAN 2.0 Ethyl Alcohol Level 168 Result Diagram: 12/20/17201412/20/172014 Imaging Last 24 hours Impressions Chest X-Ray 12/20/172008 Signed Impressions: Service Date/Time: Wednesday, December 20, 2017 20:26 - CONCLUSION: No acute disease. MD Janessa Vergara VTE Risk Assessment Janessa VTE Risk Assessment: Mod/High Risk (score >= 2) Caprini Risk Assessment Model Point Value = 1 Point Value = 2 Point Value = 3 Point Value = 5 Age 41-60 Minor surgery BMI > 25 kg/m2 Swollen legs Varicose veins or History of unexplained or recurrent spontaneous Oral contraceptives or hormone replacement Sepsis (< 1 month) Serious lung disease, including pneumonia (< 1 month) Abnormal pulmonary function Acute myocardial infarction Congestive heart failure (< 1 month) History of inflammatory bowel disease Medical patient at bed rest Age 61-74 Arthroscopic surgery Major open surgery (> 45 min) Laparoscopic surgery (> 45 min) Malignancy Confined to bed (> 72 hours) Immobilizing plaster cast Central venous access Age >= 75 History of VTE Family history of VTE Factor V Leiden Prothrombin [id number] Lupus anticoagulant Anticardiolipin antibodies Elevated serum homocysteine Heparin-induced thrombocytopenia Other congenital or acquired thrombophilia Stroke (< 1 month) Elective arthroplasty Hip, pelvis, or leg fracture Acute spinal cord injury (< 1 month) Prophylaxis Regimen Total Risk Factor Score Risk Level Prophylaxis Regimen 0-1 Low Early ambulation 2 Moderate Order ONE of the following: *Sequential Compression Device (SCD) *Heparin 5000 units SQ BID 3-4 Higher Order ONE of the following medications: *Heparin 5000 units SQ TID *Enoxaparin/Lovenox 40 mg SQ daily (WT < 150 kg, CrCl > 30 mL/min) *Enoxaparin/Lovenox 30 mg SQ daily (WT < 150 kg, CrCl > 10-29 mL/min) *Enoxaparin/Lovenox 30 mg SQ BID (WT < 150 kg, CrCl > 30 mL/min) AND/OR *Sequential Compression Device (SCD) 5 or more Highest Order ONE of the following medications: *Heparin 5000 units SQ TID (Preferred with Epidurals) *Enoxaparin/Lovenox 40 mg SQ daily (WT < 150 kg, CrCl > 30 mL/min) *Enoxaparin/Lovenox 30 mg SQ daily (WT < 150 kg, CrCl > 10-29 mL/min) *Enoxaparin/Lovenox 30 mg SQ BID (WT < 150 kg, CrCl > 30 mL/min) AND *Sequential Compression Device (SCD) Assessment and Plan Assessment and Plan Perlita Verdugo Gel ingestion -Frequent labs per Poison Control Center -N.p.o. -IV fluids -Gastroenterology consultation for EGD Bipolar disorder Suicidal attempt -Psychiatry consultation Alcoholism -Monitor for withdrawal -Benzodiazepines if indicated DVT GI prophylaxis -Dudley's and SCDs -Early aggressive mobilization -Pepcid Critical Care: The total critical care time was 35 minutes. Time to perform other separately billable procedures was not included in the critical care time. Wing Cesar MD Dec 20, 2017 10:52 pm
[2017-12-20] MEDS ORDERED: LACTULOSE SYRUP 20 GM/30 ML CUP PO PRN (23:00)
[2017-12-20] MEDS ORDERED: ONDANSETRON HCL 4 MG/2 ML VIAL IV PUSH PRN (23:00)
[2017-12-20] MEDS ORDERED: SENNOSIDES 8.6 MG TAB PO PRN (23:00)
[2017-12-20] MEDS ORDERED: BISACODYL 10 MG SUPP RECTAL PRN (23:00)
[2017-12-20] MEDS ORDERED: ACETAMINOPHEN 325 MG TAB PO PRN (23:00)
[2017-12-20] MEDS ORDERED: RESP: ALBUTEROL 2.5 MG/IPRATROPIUM 0.5 MG NEB (PRN) INH (23:00)
[2017-12-20] MEDS ORDERED: CHLORHEXIDINE GLUCONATE 2 % 1 PACK (2 CLOTHS) TOP PRN (23:00)
[2017-12-20] MEDS ORDERED: MAGNESIUM HYDROXIDE SUSP 30 ML CUP PO PRN (23:00)
[2017-12-20] MEDS ORDERED: LORazepam 2 MG/ML VIAL IV PUSH PRN (23:00)
[2017-12-20] MEDS ORDERED: SODIUM CHLORIDE 0.9% FLUSH 10 ML FLUSH IV FLUSH PRN (23:00)
[2017-12-20] MEDS ORDERED: NURSING INFORMATION XX SCH (23:00)
[2017-12-20] MEDS: SODIUM CHLOR 0.9% 1000 ML INJ 1,000 ML IV SCH (23:24)
[2017-12-21] VITALS (9 sets, daily range): BP systolic 119–136; BP diastolic 65–82; PULSE 62–96; RESP 12–23; TEMP 98–98.9; O2SAT 96–100
[2017-12-21] MEDS ORDERED: CALCIUM GLUCONATE INJ 2 GM in SODIUM CHLORIDE 0.9% INJ 100 ML IV ONE (02:00)
[2017-12-21] MEDS ORDERED: CHLORHEXIDINE GLUCONATE 2 % 1 PACK (2 CLOTHS) TOP SCH (04:00)
[2017-12-21 04:14] LABS: BILIRUBIN, URINE NEG (NEG); BLOOD, URINE NEG (NEG); GLUCOSE,URINE NEG (NEG); KETONE, URINE NEG (NEG); MUCUS URINE FEW /lpf (OCC); NITRITE,URINE NEG (NEG); PH, URINE 6.5 (5.0-8.5); URINE COLOR LIGHT-YELLOW (YELLW/STRAW); URINE LEUKOCYTE ESTERASE NEG (NEG)
[2017-12-21 04:59] LABS: AUTOMATED NEUTROPHIL # 6.3 TH/MM3 (1.8-7.7); BASOPHIL # 0.1 TH/MM3 (0-0.2); BASOPHIL % 0.8 % (0.0-2.0); EOSINOPHIL # 0.1 TH/MM3 (0-0.4); EOSINOPHIL % 1.2 % (0.0-4.0); LYMPH % 21.6 % (9.0-44.0); MEAN CELL VOLUME 85.9 FL (80.0-100.0); MEAN CORPUSCULAR HEMOGLOBIN 29.3 PG (27.0-34.0); MEAN CORPUSCULAR HGB CONC 34.1 % (32.0-36.0); MEAN PLATELET VOLUME 6.6 FL (7.0-11.0); MONO % 7.7 % (0.0-8.0); MONOCYTE # 0.7 TH/MM3 (0-0.9); NEUT % 68.7 % (16.0-70.0); PLATELET COUNT 356 TH/MM3 (150-450); RED BLOOD COUNT 4.78 MIL/MM3 (4.50-5.90); RED CELL DISTRIBUTION WIDTH 15.2 % (11.6-17.2); WHITE BLOOD COUNT 9.2 TH/MM3 (4.0-11.0)
[2017-12-21 05:12] LABS: PROTHROMBIN TIME - PATIENT 10.2 SEC (9.8-11.6)
[2017-12-21 05:45] LABS: ALBUMIN 3.4 GM/DL (3.4-5.0); ALKALINE PHOSPHATASE 62 U/L (45-117); ALT (GPT) 26 U/L (12-78); AST (GOT) 20 U/L (15-37); BICARBONATE 26.4 MEQ/L (21.0-32.0); BLOOD UREA NITROGEN 11 MG/DL (7-18); CALCIUM 8.7 MG/DL (8.5-10.1); CHLORIDE 108 MEQ/L (98-107); CREATININE 0.58 MG/DL (0.60-1.30); GLOMERULAR FILTRATION RATE 168 ML/MIN (>89); GLUCOSE,RANDOM 92 MG/DL (74-106); MAGNESIUM 1.8 MG/DL (1.5-2.5); PHOSPHORUS 3.2 MG/DL (2.5-4.9); SODIUM (NA) 141 MEQ/L (136-145); TOTAL BILIRUBIN ADULT 0.3 MG/DL (0.2-1.0); TOTAL PROTEIN 6.5 GM/DL (6.4-8.2)
[2017-12-21] MEDS: SODIUM CHLOR 0.9% 1000 ML INJ 1,000 ML IV SCH (07:55)
[2017-12-21] MEDS ORDERED: DOCUSATE SODIUM 50 MG/SENNA 8.6 MG TAB PO SCH (09:00)
[2017-12-21] MEDS ORDERED: SODIUM CHLORIDE 0.9% FLUSH 10 ML FLUSH IV FLUSH SCH (09:00)
[2017-12-21] MEDS ORDERED: FAMOTIDINE 20 MG/2 ML VIAL IV PUSH SCH (09:00)
--- NOTE | 2017-12-21 10:18 | HHI.CCPN ---
Subjective Remarks/Hospital Course 27 year old male with past medical history of bipolar disorder presents with a history of attempting suicide approximately 1 hour prior to arrival at 7 PM by drinking 10 ounces of Drano Max Gel with active ingredients that include bleach , sodium hypochlorite, sodium hydroxide, and sodium silicate. The patient reports that he has had nausea and vomiting 2., a sore throat and midepigastric abdominal pain. He denies having any chest pain or shortness of breath. The patient reports that he has also been drinking alcohol today. He reports that he drinks alcohol on a daily basis, however he will not specify how much he drinks per day. He reports that he stopped taking his bipolar medications as he forgets to go to his appointments. He reports that he has had suicidal ideations for a long-standing period of time. He reports that he has had multiple suicide attempts. The patient reports that he self mutilates with cutting. The Po[facility] Control [facility] was already contacted by emergency department attending. Subjective: 12/21: No acute changes overnight. Patient scheduled for upper endoscopy with Dr. Henry, patient actively refusing . Psychiatry consulted consulted appreciate recommendations regarding cognition and ability to make decisions. Poison control contacted this a.m. for any additional recommendations. Daigle act in effect since admission to hospital. Discussed with Dr. Armstrong after consultation. She with manipulative tendencies. No toxic substances ingested. Daigle act lifted per psychiatry. Diet resumed. Addendum: Patient has made a decision to leave a.m.. AMA forms completed. Objective Vital Signs Date Time Temp Pulse Resp B/P (MAP) Pulse Ox O2 Delivery O2 Flow Rate FiO2 12/21/17 06:00 66 12/21/17 04:00 98.0 22 119/65 (83) 96 12/20/17 21:05 Room Air Intake and Output 12/21/17 12/21/17 12/22/17 08:00 16:00 00:00 Intake Total 1230 ml Output Total 700 ml Balance 530 ml Result Diagram: 12/21/17 0411 12/21/17 0411 Imaging Last 24 hours Impressions Chest X-Ray 12/20/172008 Signed Impressions: Service Date/Time: Wednesday, December 20, 2017 20:26 - CONCLUSION: No acute disease. Imer Huynh MD Objective Remarks GENERAL: Well-nourished, well-developed young male patient, in no acute distress SKIN: Warm and dry. HEAD: Normocephalic. EYES: No scleral icterus. No injection or drainage. NECK: Supple, trachea midline. No JVD or lymphadenopathy. CARDIOVASCULAR: Regular rate and rhythm without murmurs, gallops, or rubs. RESPIRATORY: Breath sounds equal bilaterally. No accessory muscle use. GASTROINTESTINAL: Abdomen soft, non-tender, nondistended. MUSCULOSKELETAL: No cyanosis, or edema. BACK: Nontender without obvious deformity. NEURO EXAM: GCS: 15 Mental Status: The patient is alert and oriented to person, place, and time with normal speech. Cranial Nerves: Visual acuity intact bilaterally. Visual hess normal in all quadrants. Pupils are round, reactive to light. Extraocular movements are intact without ptosis. Hearing is normal bilaterally. Voice is normal. Tongue protrudes midline and moves symmetrically. Reflexes: Biceps, patellar, and Achilles are 2/4 bilaterally. No clonus. Sensation: Sensation is intact bilaterally to pain and light touch. Two-point discrimination is intact. Motor: Good muscle tone. Strength is 5/5 bilaterally. Cerebellar: [id number] and [id number] test normal bilaterally. A/P Assessment and Plan Perlita Verdugo Gel ingestion -Frequent labs per Poison Control Center -Plan for EGD this a.m.patient is refusing -Continue maintenance IV fluids -Gastroenterology consultation for EGD Bipolar disorder Suicidal attempt History of self-mutilation -Psychiatry consultation- Dr Kiser Alcoholism -Monitor for withdrawal -Benzodiazepines if indicated DVT GI prophylaxis -Dudley's and SCDs -Early aggressive mobilization -Pepcid Level 2 follow up. Plan transfer to [facility] in a.m.. Possible transfer to med psych unit or MedSurg floor when bed becomes available. Per recommendations from psychiatry, patient stated he never drank drain now he is hungry would like a diet he was just manipulating his girlfriend at the time. Per Dr. Armstrong the patient has significant manipulative tendencies. Diet advanced Physician Evangelina Rock MD December 21, 2017 10:18
--- NOTE | 2017-12-21 11:15 | PD.CONS ---
HPI History of Present Illness This is a 27 year old male with bipolar disorder who presented under Daigle act after drinking Drano in a suicide attempt. He says he had "a few mouthfuls." After drinking the Drano he vomited afterwards. No blood in emesis. He is c/o epigastric discomfort, sore throat. he has never had EGD or colonoscopy. He says he drinks a "12 pack on the weekends" although told another provider he drank daily. He is reluctant historian. He told the RN he "will drink the whole bottle next time." he denies any medical problems and says he does not take any medications although per EMR he has hx bipolar disorder and hasn't been taking his meds. (Vicki Crawford) PFSH Past Medical History bipolar Past Surgical History denies (Vicki Crawford) Coded Allergies: penicillin G (Unverified Allergy, Severe, 12/20/17) Uncoded Allergies: DUST MITES (Allergy, Intermediate, SINUS ISSUES, 05/16/17) Family History father - cancer unk type Social History drinks etoh, unclear how much smokes 1ppd denies illicit drug use (Vicki Crawford) Review of Systems Constitutional: DENIES: Fever Endocrine: DENIES: Polydipsia Eyes: DENIES: Blurred vision Ears, nose, mouth, throat: DENIES: Hearing loss Respiratory: DENIES: Cough Cardiovascular: DENIES: Chest pain Gastrointestinal: COMPLAINS OF: Abdominal pain, Nausea, Vomiting, DENIES: Black stools, Bloody stools, Diarrhea, Hematemesis Genitourinary: DENIES: Hematuria Musculoskeletal: DENIES: Muscle aches Integumentary: DENIES: Abnormal pigmentation Hematologic/lymphatic: DENIES: Bruising Immunologic/allergic: DENIES: Eczema Neurologic: DENIES: Abnormal gait Psychiatric: DENIES: Confusion (Vicki Crawford) GI Exam Vitals I&O Vital Signs Date Time Temp Pulse Resp B/P (MAP) Pulse Ox O2 Delivery O2 Flow Rate FiO2 12/21/17 10:00 66 12/21/17 08:00 98.9 66 23 136/77 (96) 98 12/21/17 08:00 66 12/21/17 06:00 66 12/21/17 04:00 62 12/21/17 04:00 98.0 62 22 119/65 (83) 96 12/21/17 02:00 90 12/21/17 01:00 72 12/21/17 00:21 12/21/17 00:00 87 12/21/17 00:00 98.4 87 12 132/79 (96) 99 12/20/17 22:01 86 14 111/70 (84) 99 12/20/17 21:05 97 Room Air 12/20/17 21:00 88 14 125/86 (99) 100 12/20/17 20:02 98.0 99 14 134/76 (95) 99 I/O 12/20/17 12/20/17 12/20/17 12/21/17 12/21/17 12/21/17 07:00 15:00 23:00 07:00 15:00 23:00 Intake Total 1000 ml 1230 ml Output Total 700 ml Balance 1000 ml 530 ml Intake IV Total 1000 ml 1230 ml Output Urine Total 700 ml # Bowel Movements 0 Imaging Last Impressions Chest X-Ray 12/20/172008 Signed Impressions: Service Date/Time: Wednesday, December 20, 2017 20:26 - CONCLUSION: No acute disease. Imer Huynh MD Laboratory Test 12/20/17 20:15 12/21/17 00:00 12/21/17 03:45 12/21/17 04:11 White Blood Count 5.9 TH/MM3 9.2 TH/MM3 Red Blood Count 5.17 MIL/MM3 4.78 MIL/MM3 Hemoglobin 15.2 GM/DL 14.0 GM/DL Hematocrit 45.0 % 41.0 % Mean Corpuscular Volume 87.1 FL 85.9 FL Mean Corpuscular Hemoglobin 29.3 PG 29.3 PG Mean Corpuscular Hemoglobin Concent 33.7 % 34.1 % Red Cell Distribution Width 15.7 % 15.2 % Platelet Count 358 TH/MM3 356 TH/MM3 Mean Platelet Volume 6.7 FL 6.6 FL Neutrophils (%) (Auto) 53.7 % 68.7 % Lymphocytes (%) (Auto) 38.2 % 21.6 % Monocytes (%) (Auto) 5.7 % 7.7 % Eosinophils (%) (Auto) 1.2 % 1.2 % Basophils (%) (Auto) 1.2 % 0.8 % Neutrophils # (Auto) 3.2 TH/MM3 6.3 TH/MM3 Lymphocytes # (Auto) 2.3 TH/MM3 2.0 TH/MM3 Monocytes # (Auto) 0.3 TH/MM3 0.7 TH/MM3 Eosinophils # (Auto) 0.1 TH/MM3 0.1 TH/MM3 Basophils # (Auto) 0.1 TH/MM3 0.1 TH/MM3 CBC Comment DIFF FINAL DIFF FINAL Differential Comment Prothrombin Time 9.6 SEC 10.2 SEC Prothromb Time International Ratio 0.9 RATIO 1.0 RATIO Activated Partial Thromboplast Time 21.6 SEC 24.8 SEC Blood Urea Nitrogen 9 MG/DL 11 MG/DL Creatinine 0.72 MG/DL 0.58 MG/DL Random Glucose 78 MG/DL 92 MG/DL Total Protein 6.7 GM/DL 6.5 GM/DL Albumin 3.2 GM/DL 3.4 GM/DL Calcium Level 7.2 MG/DL 8.7 MG/DL Alkaline Phosphatase 62 U/L 62 U/L Aspartate Amino Transf (AST/SGOT) 34 U/L 20 U/L Alanine Aminotransferase (ALT/SGPT) 29 U/L 26 U/L Total Bilirubin 0.3 MG/DL 0.3 MG/DL Sodium Level 145 MEQ/L 141 MEQ/L Potassium Level 4.7 MEQ/L 4.2 MEQ/L Chloride Level 116 MEQ/L 108 MEQ/L Carbon Dioxide Level 21.3 MEQ/L 26.4 MEQ/L Anion Gap 8 MEQ/L 7 MEQ/L Estimat Glomerular Filtration Rate 131 ML/MIN 168 ML/MIN Serum Osmolality 348 MOSM/KG Protein Corrected Calcium 7.4 MG/DL Salicylates Level 2.4 MG/DL Acetaminophen Level LESS THAN 2.0 MCG/ML Ethyl Alcohol Level 168 MG/DL Nasal Screen MRSA (PCR) MRSA DETECTED Urine Color LIGHT-YELLOW Urine Turbidity CLEAR Urine pH 6.5 Urine Specific [place] 1.017 Urine Protein NEG mg/dL Urine Glucose (UA) NEG mg/dL Urine Ketones NEG mg/dL Urine Occult Blood NEG Urine Nitrite NEG Urine Bilirubin NEG Urine Urobilinogen LESS THAN 2.0 MG/DL Urine Leukocyte Esterase NEG Urine RBC LESS THAN 1 /hpf Urine WBC LESS THAN 1 /hpf Urine Mucus FEW /lpf Microscopic Urinalysis Comment CULT NOT INDICATED Urine Osmolality 738 MOSM/KG Urine Opiates Screen NEG Urine Barbiturates Screen NEG Urine Amphetamines Screen NEG Urine Benzodiazepines Screen NEG Urine Cocaine Screen NEG Urine Cannabinoids Screen NEG Phosphorus Level 3.2 MG/DL Magnesium Level 1.8 MG/DL Total Creatine Kinase 67 U/L Physical Examination HEENT: PERRL normocephalic; atraumatic; no jaundice. CHEST: CTA CARDIAC: RRR ABDOMEN: Soft, nondistended, mild epigastric TTP; no hepatosplenomegaly; bowel sounds are present in all four quadrants. EXTREMITIES: No clubbing, cyanosis, or edema. SKIN: Normal; no rash; no jaundice. SAFETY SEALER: No focal deficits; alert and oriented times three. (Vicki Crawford) Assessment and Plan Plan ASSESSMENT - abd pain, n/v - s/p ingestion Drano. per pt "few mouthfuls," per ER documentation up to 10oz ingested. after drinking Drano pt vomited. He is c/o epigastric tenderness. limited hx, pt reluctant to provide details. he is refusing EGD. he is here on Daigle act but he is AOX3. Appears stable currently. labs remarkable for high osmolality, low calcium. PLAN - refusing EGD - await psych eval - further mgmt per CCM, poison control - supportive care pt seen by myself and Dr Henry and this note is on his behalf (Vicki Crawford) Plan Patient was seen and examined, questionable ingestion of alkaline Drano, patient is refusing any GI work most likely he was trying to scare his girlfriend, will sign off at this time please call us back if needed (Bigg Henry MD) Vicki Crawford December 21, 2017 11:15 Bigg Herny MD December 21, 2017 19:59
--- NOTE | 2017-12-21 11:24 | PD.PSY.CON ---
Provisional Diagnosis Admission Date Dec 20, 2017 at 22:03 [place] I. Bipolar disorder, alcohol induced mood disorder, alcohol use disorder [place] II. Borderline personality disorder versus antisocial personality disorder [place] III. No significant medical history [place] IV. Patient has an extensive history of self cutting behavior without SI, manipulative behavior, substance abuse [place] V. 55 History of Present Illness Service Psychiatry Consult Requested By Critical care Reason for Consult Decision-making capacity Primary Care Physician Unknown HPI The patient is 27 year-old man, domiciled with his mother, unemployed , single, with an extensive psychiatric history of bipolar disorder, borderline versus antisocial personality disorder, alcohol and amphetamines use disorder, multiple psychiatric hospitalizations, well known by the service, frequent ER utilizer with similar presentation, a very significant history of self cutting behavior and self mutilating behavior without SI, manipulative behavior, he is not engaged in outpatient care, no psychotropics at the moment, who presents with a history of attempting suicide approximately 1 hour prior to arrival at 7 PM by drinking 10 ounces of Drano Max Gel with active ingredients that include bleach, sodium hypochlorite, sodium hydroxide, and sodium silicate. The patient initially reports that he has had nausea and vomiting 2., a sore throat and midepigastric abdominal pain. He denies having any chest pain or shortness of breath. The patient reports that he has also been drinking alcohol today. He reports that he drinks alcohol on a daily basis, however he will not specify how much he drinks per day. He reports that he stopped taking his bipolar medications as he forgets to go to his appointments. He reports that he has had suicidal ideations for a long-standing period of time. He reports that he has had multiple suicide attempts. The patient reports that he self mutilates with cutting. The Poison Control Center was already contacted by emergency department attending. Since the patient has been refusing to have GI studies was consulted to psychiatry for decision-making capacity to refuse. EMR was reviewed. The case was widely discussed with nurse in charge and also with critical care doctor. On psychiatric evaluation the patient is calm and cooperative. His first statement even before I presented myself is "I am really very hungry". The patient reports that he feels very sorry that he is in the ICU "because I really did not take anything, I just wanted to manipulate my girlfriend". It is important to clarify that the patient was here about 2 weeks ago with a very similar presentation and he was cleared by psychiatry. The patient reports that last night he had an argument with his girlfriend, he was very drunk "and I did not even know what I was stating". The patient reports that he does not want to waste resources in the hospital, he does not have any pain, he does not have any nausea, "I did not drink anything". The patient is logical, he is coherent, his relevant. The patient verbalized that he is not interested in dying, "I never been". He says that he cuts himself often he has burned himself "but this is not with suicidal intentions, but to feel something and release stress". He is completely oriented 3. There is no fluctuation of consciousness, no attention deficit, no gross cognitive impairment present. He seems to be quite rational at this moment. Review of Systems Constitutional: DENIES: Diaphoretic episodes, Fatigue, Fever, Weight gain, Weight loss, Chills, Dizziness, Change in appetite, Night Sweats Endocrine: DENIES: Heat/cold intolerance, Polydipsia, Polyuria, Polyphagia Eyes: DENIES: Blurred vision, Diplopia, Eye inflammation, Eye pain, Vision loss , Photosensitivity, Double Vision Ears, nose, mouth, throat: DENIES: Tinnitus, Hearing loss, Vertigo, Nasal discharge, Oral lesions, Throat pain, Hoarseness, Ear Pain, Running Nose, Epistaxis, Sinus Pain, Toothache, Odynophagia Respiratory: DENIES: Apneas, Cough, Snoring, Wheezing, Hemoptysis, Sputum production, Shortness of breath Cardiovascular: DENIES: Chest pain, Palpitations, Syncope, Dyspnea on Exertion , PND, Lower Extremity Edema, Orthopnea, Claudication Gastrointestinal: DENIES: Abdominal pain, Black stools, Bloody stools, Constipation, Diarrhea, Nausea, Vomiting, Difficulty Swallowing, Anorexia Genitourinary: DENIES: Sexual dysfunction, Urinary frequency, Urinary incontinence, Urgency, Hematuria, Dysuria, Nocturia, Penile Discharge, Testicular Pain, Testicular Swelling Musculoskeletal: DENIES: Joint pain, Muscle aches, Stiffness, Joint Swelling, Back pain, Neck pain Integumentary: DENIES: Abnormal pigmentation, Nail changes, Pruritus, Rash Hematologic/lymphatic: DENIES: Bruising, Lymphadenopathy Immunologic/allergic: DENIES: Eczema, Urticaria Neurologic: DENIES: Abnormal gait, Headache, Localized weakness, Paresthesias, Seizures, Speech Problems, Tremor, Poor Balance Psychiatric: DENIES: Anxiety, Confusion, Mood changes, Depression, Hallucinations, Agitation, Suicidal Ideation, Homicidal Ideation, Delusions Past Family Social History Coded Allergies: penicillin G (Unverified Allergy, Severe, 12/20/17) Uncoded Allergies: DUST MITES (Allergy, Intermediate, SINUS ISSUES, 05/16/17) No Active Prescriptions or Reported Meds Current Medications Medications (Trade) Dose Ordered Sig/Mara Route Start Time Stop Time Status Last Admin (NS Flush) 2 ml UNSCH PRN IVF 12/20/17 20:15 Sodium Chloride 1,000 ml @ 124 mls/hr Q8H4M IV 12/20/17 22:46 12/21/17 07:55 (NS Flush) 2 ml UNSCH PRN IV FLUSH 12/20/17 23:00 (NS Flush) 2 ml BID IV FLUSH 12/21/17 09:00 12/21/17 07:55 (Tylenol) 650 mg Q6H PRN PO 12/20/17 23:00 (Pepcid Inj) 20 mg Q12HR IV PUSH 12/21/17 09:00 12/21/17 07:55 (Ativan Inj) 1 mg Q3H PRN IV PUSH 12/20/17 23:00 (Zofran Inj) 4 mg Q6H PRN IV PUSH 12/20/17 23:00 (Duoneb Neb) 1 ampule Q2HR NEB PRN INH 12/20/17 23:00 ([facility] Nursing Information) 1 [id number] XX 12/20/17 23:00 (Chlorhexidine 2% Cloth) 3 pack Taper DAILY@04 TOP 12/21/17 04:00 12/17/18 03:59 12/21/17 03:51 (Chlorhexidine 2% Cloth) 3 pack UNSCH PRN TOP 12/20/17 23:00 (Dania-Colace) 1 tab BID PO 12/21/17 09:00 12/21/17 07:54 (Milk Of Magnesia Liq) 30 ml Q12H PRN PO 12/20/17 23:00 (Senokot) 17.2 mg Q12H PRN PO 12/20/17 23:00 (Dulcolax Supp) 10 mg DAILY PRN RECTAL 12/20/17 23:00 (Lactulose Liq) 30 ml DAILY PRN PO 12/20/17 23:00 Family Psych History No family psychiatric history Social History Patient was born and raised [place], he lives in [place] with his mother, his single, unemployed, Patient's Strengths (min. 2) Verbal communication Physical Exam No tremors, no EPS, no withdrawal symptoms Vital Signs Vital Signs Date Time Temp Pulse Resp B/P (MAP) Pulse Ox O2 Delivery O2 Flow Rate FiO2 12/21/17 10:00 66 12/21/17 08:00 98.9 23 136/77 (96) 98 12/20/17 21:05 Room Air I/O 12/21/17 12/21/17 12/22/17 08:00 16:00 00:00 Intake Total 1230 ml Output Total 700 ml Balance 530 ml Lab Results Test 12/20/17 20:15 12/21/17 00:00 12/21/17 03:45 12/21/17 04:11 White Blood Count 5.9 TH/MM3 9.2 TH/MM3 Red Blood Count 5.17 MIL/MM3 4.78 MIL/MM3 Hemoglobin 15.2 GM/DL 14.0 GM/DL Hematocrit 45.0 % 41.0 % Mean Corpuscular Volume 87.1 FL 85.9 FL Mean Corpuscular Hemoglobin 29.3 PG 29.3 PG Mean Corpuscular Hemoglobin Concent 33.7 % 34.1 % Red Cell Distribution Width 15.7 % 15.2 % Platelet Count 358 TH/MM3 356 TH/MM3 Mean Platelet Volume 6.7 FL 6.6 FL Neutrophils (%) (Auto) 53.7 % 68.7 % Lymphocytes (%) (Auto) 38.2 % 21.6 % Monocytes (%) (Auto) 5.7 % 7.7 % Eosinophils (%) (Auto) 1.2 % 1.2 % Basophils (%) (Auto) 1.2 % 0.8 % Neutrophils # (Auto) 3.2 TH/MM3 6.3 TH/MM3 Lymphocytes # (Auto) 2.3 TH/MM3 2.0 TH/MM3 Monocytes # (Auto) 0.3 TH/MM3 0.7 TH/MM3 Eosinophils # (Auto) 0.1 TH/MM3 0.1 TH/MM3 Basophils # (Auto) 0.1 TH/MM3 0.1 TH/MM3 CBC Comment DIFF FINAL DIFF FINAL Differential Comment Prothrombin Time 9.6 SEC 10.2 SEC Prothromb Time International Ratio 0.9 RATIO 1.0 RATIO Activated Partial Thromboplast Time 21.6 SEC 24.8 SEC Blood Urea Nitrogen 9 MG/DL 11 MG/DL Creatinine 0.72 MG/DL 0.58 MG/DL Random Glucose 78 MG/DL 92 MG/DL Total Protein 6.7 GM/DL 6.5 GM/DL Albumin 3.2 GM/DL 3.4 GM/DL Calcium Level 7.2 MG/DL 8.7 MG/DL Alkaline Phosphatase 62 U/L 62 U/L Aspartate Amino Transf (AST/SGOT) 34 U/L 20 U/L Alanine Aminotransferase (ALT/SGPT) 29 U/L 26 U/L Total Bilirubin 0.3 MG/DL 0.3 MG/DL Sodium Level 145 MEQ/L 141 MEQ/L Potassium Level 4.7 MEQ/L 4.2 MEQ/L Chloride Level 116 MEQ/L 108 MEQ/L Carbon Dioxide Level 21.3 MEQ/L 26.4 MEQ/L Anion Gap 8 MEQ/L 7 MEQ/L Estimat Glomerular Filtration Rate 131 ML/MIN 168 ML/MIN Serum Osmolality 348 MOSM/KG Protein Corrected Calcium 7.4 MG/DL Salicylates Level 2.4 MG/DL Acetaminophen Level LESS THAN 2.0 MCG/ML Ethyl Alcohol Level 168 MG/DL Nasal Screen MRSA (PCR) MRSA DETECTED Urine Color LIGHT-YELLOW Urine Turbidity CLEAR Urine pH 6.5 Urine Specific [place] 1.017 Urine Protein NEG mg/dL Urine Glucose (UA) NEG mg/dL Urine Ketones NEG mg/dL Urine Occult Blood NEG Urine Nitrite NEG Urine Bilirubin NEG Urine Urobilinogen LESS THAN 2.0 MG/DL Urine Leukocyte Esterase NEG Urine RBC LESS THAN 1 /hpf Urine WBC LESS THAN 1 /hpf Urine Mucus FEW /lpf Microscopic Urinalysis Comment CULT NOT INDICATED Urine Osmolality 738 MOSM/KG Urine Opiates Screen NEG Urine Barbiturates Screen NEG Urine Amphetamines Screen NEG Urine Benzodiazepines Screen NEG Urine Cocaine Screen NEG Urine Cannabinoids Screen NEG Phosphorus Level 3.2 MG/DL Magnesium Level 1.8 MG/DL Total Creatine Kinase 67 U/L Mental Status Examination Appearance: Appropriate Consciousness: Alert Orientation: x4 Motor Activity: Normal gait Speech: Unremarkable Language: Adequate Fund of Knowledge: Adequate Attention and Concentration: Adequate Memory: Unremarkable Mood: Appropriate Affect: Appropriate Thought Process & Associations: Intact Thought Content: Appropriate Hallucination Type: None Delusion Type: None Suicidal Ideation: No Suicidal Plan: No Suicidal Intention: No Homicidal Ideation: No Homicidal Plan: No Homicidal Intention: No Insight: Adequate Judgment: Adequate Assessment & Plan Problem List: (1) Borderline personality disorder ICD Codes: F60.3 - Borderline personality disorder Assessment & Plan: Psychiatric evaluation today I find a patient that is calm, cooperative, logical, coherent and relevant. The patient does not have any subjective or objective evidence of significant symptomatology of depression, anxiety, kelly or psychosis at this moment. The patient denies suicidal and homicidal ideation, he denies visual and auditory hallucinations. Patient is fully oriented 3, without any attention deficit, no fluctuation of consciousness at this moment. The patient is able to admit to his recent documented suicidal attempt by drinking Drainer never happens and he is just verbalized a false suicidal statement to manipulate his girlfriend. He also admits that he was completely intoxicated with alcohol at the time he did. It is very important to clarify this is a patient with an extensive history of borderline versus antisocial personality disorder, polysubstance dependence, poor impulse control and poor coping skills, with a very low tolerance to frustration and increased sensitivity rejection. Manipulative behavior, self cutting behavior without SI, pathological lies are quite common in the cluster B spectrum of personality disorder. He does not meet criteria for involuntary psychiatric admission at this moment. The patient has full decision-making capacity to refuse treatment or to leave AMA. Extensive support, motivation and psychoeducation provided. Consult appreciated. Assessment & Plan Estimated LOS: Александр Dominguez MD December 21, 2017 11:23
--- NOTE | 2017-12-21 14:16 | HHI.DS ---
Discharge Summary Admission Date Dec 20, 2017 at 22:03 Admitting Diagnosis Intentional Caustic alkali ingestion Brief History 27 year old male with past medical history of bipolar disorder presents with a history of attempting suicide approximately 1 hour prior to arrival at 7 PM by drinking 10 ounces of Drano Max Gel with active ingredients that include bleach , sodium hypochlorite, sodium hydroxide, and sodium silicate. The patient reports that he has had nausea and vomiting 2., a sore throat and midepigastric abdominal pain. He denies having any chest pain or shortness of breath. The patient reports that he has also been drinking alcohol today. He reports that he drinks alcohol on a daily basis, however he will not specify how much he drinks per day. He reports that he stopped taking his bipolar medications as he forgets to go to his appointments. He reports that he has had suicidal ideations for a long-standing period of time. He reports that he has had multiple suicide attempts. The patient reports that he self mutilates with cutting. The Poison Control Center was already contacted by emergency department attending. CBC/BMP: 12/21/17 0411 12/21/17 0411 Significant Findings Laboratory Tests Test 12/20/17 20:15 12/21/17 00:00 12/21/17 03:45 12/21/17 04:11 Mean Platelet Volume 6.7 FL (7.0-11.0) 6.6 FL (7.0-11.0) Prothrombin Time 9.6 SEC (9.8-11.6) Activated Partial Thromboplast Time 21.6 SEC (24.3-30.1) Albumin 3.2 GM/DL (3.4-5.0) Calcium Level 7.2 MG/DL (8.5-10.1) Chloride Level 116 MEQ/L (98-107) 108 MEQ/L (98-107) Serum Osmolality 348 MOSM/KG (275-295) Protein Corrected Calcium 7.4 MG/DL (8.5-10.1) Salicylates Level 2.4 MG/DL (2.8-20.0) Acetaminophen Level LESS THAN 2.0 MCG/ML Ethyl Alcohol Level 168 MG/DL (0-5) Urine Mucus FEW /lpf (OCC) Creatinine 0.58 MG/DL (0.60-1.30) Imaging Last Impressions Chest X-Ray 12/20/172008 Signed Impressions: Service Date/Time: Wednesday, December 20, 2017 20:26 - CONCLUSION: No acute disease. Imer Huynh MD Hospital Course 27 year old male with past medical history of bipolar disorder presents with a history of attempting suicide approximately 1 hour prior to arrival at 7 PM by drinking 10 ounces of Drano Max Gel with active ingredients that include bleach , sodium hypochlorite, sodium hydroxide, and sodium silicate. The patient reports that he has had nausea and vomiting 2., a sore throat and midepigastric abdominal pain. He denies having any chest pain or shortness of breath. The patient reports that he has also been drinking alcohol today. He reports that he drinks alcohol on a daily basis, however he will not specify how much he drinks per day. He reports that he stopped taking his bipolar medications as he forgets to go to his appointments. He reports that he has had suicidal ideations for a long-standing period of time. He reports that he has had multiple suicide attempts. The patient reports that he self mutilates with cutting. The Poison Control Center was already contacted by emergency department attending. Subjective: 12/21: No acute changes overnight. Patient scheduled for upper endoscopy with Dr. Henry, patient actively refusing . Psychiatry consulted consulted appreciate recommendations regarding cognition and ability to make decisions. Poison control contacted this a.m. for any additional recommendations. Daigle act in effect since admission to hospital. Discussed with Dr. Armstrong after consultation. She with manipulative tendencies. No toxic substances ingested. Daigle act lifted per psychiatry. Diet resumed. Addendum:[id number] Patient has made a decision to leave a.m.. AMA forms completed. Pt Condition on Discharge: Evangelina Haed MD December 21, 2017 14:16
== END 2017-12-21 14:20 | disposition left against medical advice (07) | DRG 885 ==
LOC: NEPE 19:56 → NEDA 22:03 → HIME 23:50
PROVIDERS: ADMIT Internal Medicine Critical Care Medicine; ATTEND Internal Medicine Critical Care Medicine
DX: F31.9 Bipolar disorder, unspecified (principal); F10.20 Alcohol dependence, uncomplicated; Z91.5 Personal history of self-harm; Y90.6 Blood alcohol level of 120-199 mg/100 ml
CPT/HCPCS: 71045; 80053; 80307; 81001; 82550; 83735; 83930; 83935; 84100; 85025; 85610; 85730; 87641; 93005; 96360; J0610; J7030

== ENCOUNTER 2018-01-01 21:06 | Inpatient (IN) | payer OTHER ==
[2018-01-01 21:15] VITALS: BP 160/68; PULSE 88; RESP 18; TEMP 98.9; O2SAT 100
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
[2018-01-01] MEDS ORDERED: SODIUM CHLOR 0.9% 1000 ML INJ 1,000 ML IV SCH (21:26)
[2018-01-01] MEDS ORDERED: SODIUM CHLORIDE 0.9% FLUSH 10 ML FLUSH IVF PRN (21:30)
[2018-01-01] MEDS ORDERED: DIPHTH/TETANUS/ACEL PERTUSSIS (BOOSTER) 0.5 ML VIAL/PFS IM ONE (21:30)
[2018-01-01 22:09] LABS: AUTOMATED NEUTROPHIL # 4.2 TH/MM3 (1.8-7.7); BASOPHIL # 0.1 TH/MM3 (0-0.2); BASOPHIL % 1.2 % (0.0-2.0); EOSINOPHIL # 0.1 TH/MM3 (0-0.4); EOSINOPHIL % 1.2 % (0.0-4.0); HEMATOCRIT 38.3 % (39.0-51.0); LYMPH % 33.3 % (9.0-44.0); LYMPHOCYTE # 2.4 TH/MM3 (1.0-4.8); MEAN CELL VOLUME 85.3 FL (80.0-100.0); MEAN CORPUSCULAR HEMOGLOBIN 28.9 PG (27.0-34.0); MEAN CORPUSCULAR HGB CONC 33.9 % (32.0-36.0); MEAN PLATELET VOLUME 6.4 FL (7.0-11.0); MONOCYTE # 0.4 TH/MM3 (0-0.9); NEUT % 58.3 % (16.0-70.0); PLATELET COUNT 362 TH/MM3 (150-450); RED BLOOD COUNT 4.49 MIL/MM3 (4.50-5.90); RED CELL DISTRIBUTION WIDTH 15.8 % (11.6-17.2); WHITE BLOOD COUNT 7.1 TH/MM3 (4.0-11.0)
[2018-01-01 22:16] LABS: PROTHROMBIN TIME - PATIENT 10.2 SEC (9.8-11.6)
[2018-01-01] MEDS ORDERED: IOHEXOL 350 MG/ML 10 ML VIAL (for RAD DIAG) IVCONTRAST ONE (22:31)
[2018-01-01 22:33] LABS: BICARBONATE 27.2 MEQ/L (21.0-32.0); CALCIUM 8.4 MG/DL (8.5-10.1); CREATININE 0.72 MG/DL (0.60-1.30)
--- NOTE | 2018-01-01 22:58 | RADRPT ---
EXAM DATE/TIME: 01/01/2018 22:29 [facility] COMPARISON: CTA UPPER EXTREMITY LEFT W 3D RECON, May 11, 2017, 4:13. INDICATIONS : Small laceration on the right side of patient's neck. IV CONTRAST: 90 cc Omnipaque 350 (iohexol) IV RADIATION DOSE: 23.75 CTDIvol (mGy) MEDICAL HISTORY : Schizophrenia SURGICAL HISTORY : None. ENCOUNTER: Initial ACUITY: 1 day PAIN SCALE: 3/10 LOCATION: neck Elevated flow velocities and ICA/CCA ratios have been found to correlate with increased degrees of vessel stenosis, calculated as percentage of diameter relative to a normal segment of distal ICA/CCA. TECHNIQUE: Volumetric scanning was performed using a multirow detector CT scanner. The data was post processed with a variety of visualization algorithms including full-volume maximum intensity projection, multip lanar sliding thin-slab reformation, curved-planar reformation, and surface-rendering techniques. Us ing automated exposure control and adjustment of the mA and/or kV according to patient size, radiatio n dose was kept as low as reasonably achievable to obtain optimal diagnostic quality images. DICOM f ormat image data is available electronically for review and comparison. FINDINGS: AORTIC ARCH: There is a three-vessel origin of the great vessels from the aorta. No evidence of ostial narrowing. RIGHT CAROTID: The common carotid artery is intact. The carotid bulb has a normal configuration without ulceration o r narrowing. The internal carotid artery lumen is smooth without stenosis. The external carotid axel ry is intact. Subcutaneous emphysema dissects through soft tissue planes of the right side of the nec k along the muscle planes and jugular vein. There is no significant vascular injury. LEFT CAROTID: The common carotid artery is intact. The carotid bulb has a normal configuration without ulceration or narrowing. The internal carotid artery lumen is smooth without stenosis. The external carotid ar jerrell is intact. VERTEBRALS: The vertebral arteries have a symmetric diameter. No stenotic lesions are seen. CONCLUSION: Subcutaneous emphysema along the right side of the neck extending to the tissue plane s with no vascular injury. Layton Huff MD on January 01, 2018 at 22:52 Board Certified Radiologist. This report was verified electronically.
--- NOTE | 2018-01-02 00:21 | PD ---
Physical Exam Date Seen by Provider: January 02, 2018 Time Seen by Provider: 00:18 Data Data Last Documented VS Vital Signs Date Time Temp Pulse Resp B/P (MAP) Pulse Ox O2 Delivery O2 Flow Rate FiO2 01/02/18 02:27 78 18 148/62 (90) 99 01/01/18 21:15 Room Air 01/01/18 21:15 98.9 Orders Orders Basic Metabolic Panel (Bmp) (01/01/18 21:26) Complete Blood Count With Diff (01/01/18 21:26) Prothrombin Time / Inr (Pt) (01/01/18 21:26) Type And Screen (01/01/18 21:26) Iv Access Insert/Monitor (01/01/18 21:26) Ecg Monitoring (01/01/18 21:26) Oximetry (01/01/18 21:26) Oxygen Administration (01/01/18 21:26) Evtj-Rps-Qfwjix (Booster) Inj (Boostrix (01/01/18 21:30) Sodium Chlor 0.9% 1000 Ml Inj (Ns 1000 M (01/01/18 21:26) Sodium Chloride 0.9% Flush (Ns Flush) (01/01/18 21:30) Alcohol (Ethanol) (01/01/18 21:26) Cta Neck W Iv Contrast W 3d (01/01/18 ) Drug Screen, Random Urine (01/01/18 22:05) Iohexol 350 Inj (Omnipaque 350 Inj) (01/01/18 22:31) Labs Laboratory Tests Test 01/01/18 21:44 White Blood Count 7.1 TH/MM3 Red Blood Count 4.49 MIL/MM3 Hemoglobin 13.0 GM/DL Hematocrit 38.3 % Mean Corpuscular Volume 85.3 FL Mean Corpuscular Hemoglobin 28.9 PG Mean Corpuscular Hemoglobin Concent 33.9 % Red Cell Distribution Width 15.8 % Platelet Count 362 TH/MM3 Mean Platelet Volume 6.4 FL Neutrophils (%) (Auto) 58.3 % Lymphocytes (%) (Auto) 33.3 % Monocytes (%) (Auto) 6.0 % Eosinophils (%) (Auto) 1.2 % Basophils (%) (Auto) 1.2 % Neutrophils # (Auto) 4.2 TH/MM3 Lymphocytes # (Auto) 2.4 TH/MM3 Monocytes # (Auto) 0.4 TH/MM3 Eosinophils # (Auto) 0.1 TH/MM3 Basophils # (Auto) 0.1 TH/MM3 CBC Comment DIFF FINAL Differential Comment Prothrombin Time 10.2 SEC Prothromb Time International Ratio 1.0 RATIO Blood Urea Nitrogen 6 MG/DL Creatinine 0.72 MG/DL Random Glucose 90 MG/DL Calcium Level 8.4 MG/DL Sodium Level 143 MEQ/L Potassium Level 3.6 MEQ/L Chloride Level 105 MEQ/L Carbon Dioxide Level 27.2 MEQ/L Anion Gap 11 MEQ/L Estimat Glomerular Filtration Rate 131 ML/MIN Ethyl Alcohol Level 230 MG/DL [facility] Medical Record Reviewed: Yes Supervised Visit with GLADYS: Yes Interpretation(s) Last 24 hours Impressions Neck CTA 01/01/18 0000 Signed Impressions: Service Date/Time: Monday, January 01, 2018 22:29 - CONCLUSION: Subcutaneous emphysema along the right side of the neck extending to the tissue planes with no vascular injury. Layton Huff MD Laboratory Tests Test 01/01/18 21:44 White Blood Count 7.1 TH/MM3 Red Blood Count 4.49 MIL/MM3 Hemoglobin 13.0 GM/DL Hematocrit 38.3 % Mean Corpuscular Volume 85.3 FL Mean Corpuscular Hemoglobin 28.9 PG Mean Corpuscular Hemoglobin Concent 33.9 % Red Cell Distribution Width 15.8 % Platelet Count 362 TH/MM3 Mean Platelet Volume 6.4 FL Neutrophils (%) (Auto) 58.3 % Lymphocytes (%) (Auto) 33.3 % Monocytes (%) (Auto) 6.0 % Eosinophils (%) (Auto) 1.2 % Basophils (%) (Auto) 1.2 % Neutrophils # (Auto) 4.2 TH/MM3 Lymphocytes # (Auto) 2.4 TH/MM3 Monocytes # (Auto) 0.4 TH/MM3 Eosinophils # (Auto) 0.1 TH/MM3 Basophils # (Auto) 0.1 TH/MM3 CBC Comment DIFF FINAL Differential Comment Prothrombin Time 10.2 SEC Prothromb Time International Ratio 1.0 RATIO Blood Urea Nitrogen 6 MG/DL Creatinine 0.72 MG/DL Random Glucose 90 MG/DL Calcium Level 8.4 MG/DL Sodium Level 143 MEQ/L Potassium Level 3.6 MEQ/L Chloride Level 105 MEQ/L Carbon Dioxide Level 27.2 MEQ/L Anion Gap 11 MEQ/L Estimat Glomerular Filtration Rate 131 ML/MIN Ethyl Alcohol Level 230 MG/DL Differential Diagnosis . Narrative Course Patient has 3 lacerations which are closed with Dermabond. Procedures Procedure Narrative LACERATION LOCATION: Right neck LENGTH: 2 cm NUMBER OF STITCHES/MAKEDA: Not applicable REPAIR: The area of the laceration was prepped with Betadine and sterilely draped. The wound was copiously irrigated and explored without evidence of foreign body, tendon injury or neurovascular injury. The wound was closed using Dermabond . This was a simple single layer repair Patient tolerated the procedure well. LACERATION LOCATION: Left neck LENGTH:1 cm NUMBER OF STITCHES/MAKEDA: Not applicable REPAIR: The area of the laceration was prepped with Betadine and sterilely draped. The wound was copiously irrigated and explored without evidence of foreign body, tendon injury or neurovascular injury. The wound was closed using Dermabond . This was a simple single layer repair Patient tolerated the procedure well. LACERATION LOCATION: Left cheek LENGTH: 2 cm NUMBER OF STITCHES/MAKEDA: Not applicable REPAIR: The area of the laceration was prepped with Betadine and sterilely draped. The wound was copiously irrigated and explored without evidence of foreign body, tendon injury or neurovascular injury. The wound was closed using Dermabond . This was a simple single layer repair Patient tolerated the procedure well. Scripts No Active Prescriptions or Reported Meds Imer Downs January 02, 2018 00:21
[2018-01-02 02:27] VITALS: BP 148/62; PULSE 78; RESP 18; O2SAT 99
[2018-01-02 12:10] VITALS: BP 112/79; PULSE 88; RESP 18; O2SAT 100
--- NOTE | 2018-01-02 17:16 | PD ---
History of Present Illness Chief Complaint: Alcohol/Drug Intoxication Travel History International Travel<30 Days: No Contact w/Intl Traveler<30days: No Known affected area: No Legal Status Legal Status: Daigle Act Daigle Act Signed By: Pita CHAPARRO History of Present Illness: Patient is a 27-year-old male, domiciled with his mother, unemployed, single, with an extensive psychiatric history of bipolar disorder, borderline versus antisocial personality disorder, alcohol and amphetamine use this order, and multiple psychiatric hospitalizations. Today the patient reports the emergency room multiple lacerations to his neck and throat he states he has been depressed. He is also quite intoxicated. Upon arrival he was tachycardic and the rest of his vital signs were stable. The emergency room physician found that his explanations were vague and inconsistent with his story. Dr. Barkley placed the patient under a Daigle act which states the following," unexplained laceration to neck. History of bipolar disorder. Previous Daigle extra suicide ideation, intoxicated state." History from previous admission patient had self mutilating behavior where he drank 10 ounces of Drano max a gel with active ingredients include bleach sodium hydrochloride, sodium hydroxide ,and sodium silicate. he was initially vomiting and had sore throat epigastric pain the patient was placed in the ICU and poison control was contacted. Patient patient states that at times he does try to burn himself but this is not an intentional suicide but is away that he feels he relieves stress. In the past he is also given vague stories of falling on a knife the police when he has had self injury. Alcohol level on arrival was 230. Patient shares tonight that he has worked with his parents to secure a psychiatrist and he has an appointment Dr. [facility] at [facility] within the next week. Patient endorses that he smokes 1 pack of pack per day, no drugs and he does drink occasionally. Patient minimizes his alcohol consumption. Per the record indicates that the patient drinks 18 pack per week. Patient did graduate from high school and completed a couple of college courses. He is currently not working but his past experience he had worked for the [employer]. He denies that either parents have any mental illness or alcoholism. He does not denies no access to weapons. He denies no medical or surgical history. Chart reviewed and case discussed with CANELO Rg. Patient presents in a hospital gown in room J108. He is alert and oriented 4. Calm and cooperative. Motor and gait steady. Fund of knowledge normal. Mood is in euthymic and affect is anxious. Remote and recent memory intact. Attention and concentration adequate. Poor eye contact. Insight and judgment impaired. Patient denies suicidal ideation or homicidal ideation. Patient is evasive and it is difficult to obtain a consistent history at this time. Based on patient's presentation and Dr. Palencia's concern base related to his safety, I will admit this patient for further assessment and evaluation. Patient is of moderate risk for self-harm. Dx: Bipolar Disorder, chronic Self-mutilation; Alcohol Intoxication PFSH Past Medical History Hx Anticoagulant Therapy: No ADHD: No Arthritis: No Asthma: No Autoimmune Disease: No Blood Disorders: No Bipolar Disorder: Yes Anxiety: Yes Depression: Yes Heart Rhythm Problems: No Cancer: No Cardiovascular Problems: No High Cholesterol: No Chemotherapy: No Chest Pain: No Congestive Heart Failure: No COPD: No Cerebrovascular Accident: No Diabetes: No Diminished Hearing: No Endocrine: No Gastrointestinal Disorders: No GERD: No Glaucoma: No Genitourinary: No Headaches: No Hepatitis: No Hiatal Hernia: No Heparin Induced Thrombocytopen: No Hypertension: No Immune Disorder: No Implanted Vascular Access Dvce: No Kidney Stones: No Musculoskeletal: No Neurologic: No Psychiatric: Yes (Patient has history of bipolar ) Reproductive: No Respiratory: No Immunizations Current: Yes Migraines: No Myocardial Infarction: No Radiation Therapy: No Renal Failure: No Schizophrenia: Yes Seizures: No Sickle Cell Disease: No Sleep Apnea: No Thyroid Disease: No Ulcer: No Past Surgical History Abdominal Surgery: No AICD: No Appendectomy: No Arteriovenous Shunt: No Cardiac Surgery: No Cholecystectomy: No Ear Surgery: No Endocrine Surgery: No Eye Surgery: No Genitourinary Surgery: No Gynecologic Surgery: No Insulin Pump: No Joint Replacement: No Neurologic Surgery: No Oral Surgery: No Pacemaker: No Thoracic Surgery: No Other Surgery: No Psychiatric History Psychiatric History Patient has a long history of bipolar disorder, borderline versus antisocial personality disorder, alcohol and amphetamine use disorder. Multiple psychiatric admissions. Hx Psychiatric Treatment: Patient with a hx of bipolar disorder with several visits for adjustment disorder and last inpatient admission being Apr 2017. History of Inpatient Treatment: Yes Social History Hx Alcohol Use: Yes (18 pk per week) Hx Tobacco Use: Yes (one pack per day) Hx Substance Use: Yes (PT STATES 12PACK ON WEEKENDS) Substance Use Type: Alcohol Other Substances Used: 2-3 beers/day, 1ppd. Patient minimizes use of substances Hx of Substance Use Treatment: No Allergies-Medications (Allergen,Severity, Reaction): Coded Allergies: penicillin G (Unverified Allergy, Severe, 01/01/18) Uncoded Allergies: DUST MITES (Allergy, Intermediate, SINUS ISSUES, 05/16/17) Reported Meds & Prescriptions Reported Meds & Active Scripts Active No Active Prescriptions or Reported Medications Mental Status Examination Appearance: Appropriate Consciousness: Alert Orientation: x4 Motor Activity: Normal gait Speech: Unremarkable Language: Adequate Fund of Knowledge: Adequate Attention and Concentration: Adequate Memory: Unremarkable Mood: Good Affect: Euthymic Thought Process & Associations: Intact Thought Content: Preoccupations (with being discharged ) Hallucination Type: None Delusion Type: None Suicidal Ideation: No Suicidal Plan: No Suicidal Intention: No Homicidal Ideation: No Homicidal Plan: No Homicidal Intention: No Insight: Adequate Judgment: Adequate MDM Medical Decision Making Medical Record Reviewed: Yes Assessment/Plan Patient is a 27-year-old male who presents to the emergency department today with cuts to his neck and throat which are unexplained. He is vague and inconsistent in his explanation. He has a long history of bipolar and multiple psychiatric admissions. Currently discharged from the ICU due to drinking 10 ounces of Drano max gel. Long history of self-mutilation such as ochoa and cuts. Patient is at moderate risk for self-harm. Dr. Chaparro placed the patient on a Dailge act. Will admit patient for further assessment and treatment. Admit: Bipolar Disorder, chronic Self-mutilation; Alcohol Intoxication Orders Orders Basic Metabolic Panel (Bmp) (01/01/18 21:26) Complete Blood Count With Diff (01/01/18 21:26) Prothrombin Time / Inr (Pt) (01/01/18 21:26) Type And Screen (01/01/18 21:26) Iv Access Insert/Monitor (01/01/18 21:26) Ecg Monitoring (01/01/18 21:26) Oximetry (01/01/18 21:26) Oxygen Administration (01/01/18 21:26) Pfju-Fbq-Drafjp (Booster) Inj (Boostrix (01/01/18 21:30) Sodium Chlor 0.9% 1000 Ml Inj (Ns 1000 M (01/01/18 21:26) Sodium Chloride 0.9% Flush (Ns Flush) (01/01/18 21:30) Alcohol (Ethanol) (01/01/18 21:26) Cta Neck W Iv Contrast W 3d (01/01/18 ) Drug Screen, Random Urine (01/01/18 22:05) Iohexol 350 Inj (Omnipaque 350 Inj) (01/01/18 22:31) Psych Screen (01/02/18 06:17) Diet Regular Basic (01/02/18 Breakfast) Diet Regular Basic (01/02/18 Lunch) Diet Regular Basic (01/02/18 Dinner) Results Vital Signs Date Time Temp Pulse Resp B/P (MAP) Pulse Ox O2 Delivery O2 Flow Rate FiO2 01/02/18 12:10 88 18 112/79 (90) 100 Room Air 01/02/18 02:27 78 18 148/62 (90) 99 01/01/18 21:15 100 Room Air 01/01/18 21:15 98.9 88 18 160/68 (98) 100 Laboratory Tests Test 01/01/18 21:44 01/02/18 12:00 White Blood Count 7.1 Red Blood Count 4.49 Hemoglobin 13.0 Hematocrit 38.3 Mean Corpuscular Volume 85.3 Mean Corpuscular Hemoglobin 28.9 Mean Corpuscular Hemoglobin Concent 33.9 Red Cell Distribution Width 15.8 Platelet Count 362 Mean Platelet Volume 6.4 Neutrophils (%) (Auto) 58.3 Lymphocytes (%) (Auto) 33.3 Monocytes (%) (Auto) 6.0 Eosinophils (%) (Auto) 1.2 Basophils (%) (Auto) 1.2 Neutrophils # (Auto) 4.2 Lymphocytes # (Auto) 2.4 Monocytes # (Auto) 0.4 Eosinophils # (Auto) 0.1 Basophils # (Auto) 0.1 CBC Comment DIFF FINAL Differential Comment Prothrombin Time 10.2 Prothromb Time International Ratio 1.0 Blood Urea Nitrogen 6 Creatinine 0.72 Random Glucose 90 Calcium Level 8.4 Sodium Level 143 Potassium Level 3.6 Chloride Level 105 Carbon Dioxide Level 27.2 Anion Gap 11 Estimat Glomerular Filtration Rate 131 Ethyl Alcohol Level 230 Urine Opiates Screen NEG Urine Barbiturates Screen NEG Urine Amphetamines Screen NEG Urine Benzodiazepines Screen NEG Urine Cocaine Screen NEG Urine Cannabinoids Screen NEG Diagnosis Primary Impression: Bipolar disease, chronic Additional Impressions: Self mutilating behavior Alcohol intoxication Admitting Information Admitting Physician Requests: Admit Prescriptions No Active Prescriptions or Reported Meds Condition: Stable Problem Qualifiers Jillian Guerrero January 02, 2018 17:16
[2018-01-02] MEDS ORDERED: ALUMINUM/MAGNESIUM/SIMETH 30 ML CUP PO PRN (17:30)
[2018-01-02] MEDS ORDERED: ACETAMINOPHEN 325 MG TAB PO PRN (17:30)
[2018-01-02] MEDS ORDERED: MAGNESIUM HYDROXIDE SUSP 30 ML CUP PO PRN (17:30)
[2018-01-02 20:37] VITALS: BP 114/70; PULSE 96; RESP 18; TEMP 99; O2SAT 98
[2018-01-03 06:23] VITALS: BP 106/54; PULSE 69; RESP 16; TEMP 98.1; O2SAT 100
--- NOTE | 2018-01-03 09:52 | HHI.HP ---
Provisional Diagnosis Admission Date January 02, 2018 at 17:21 [place]. 1. Adjustment disorder with mixed disturbance of emotions and conduct 2. Alcohol dependence [place] II. 1. Cluster B personality disorder Certification of Person's Competence To Provide Express and Informed Consent I have personally examined Tim Borrero , a person being served at [facility] on, January 03, 2018 09:52. Express and informed consent means consent voluntarily given in writing, by a competent person, after sufficient explanation and disclosure of the subject matter involved to enable the person to make a knowing and willful decision without any element of force, fraud, deceit, duress, or other form of constraint or coercion. This person is 18 years of age or older, is not now known to be incompetent to consent to treatment with a guardian advocate, and does not have a health care surrogate or proxy currently making medical treatment decisions. I have found this person to be one of the following: [] Competent to provide express and informed consent, as defined above, for voluntary admission to this facility and is competent to provide express and informed consent for treatment. He/she has the consistent capacity to make well reasoned, willful, and knowing decisions concerning his or her medical or mental health treatment. The person fully and consistently understands the purpose of the admission for examination/placement and is fully capable of personally exercising all rights assured [place] Incompetent to provide express and informed consent to voluntary admission, and this is incompetent to provide express and informed consent to treatment. The person must be transferred to involuntary status and a petition for a guardian advocate filed with the Circuit Court. [x] Refusing to provide express and informed consent to voluntary admission but is competent to provide express and informed consent for treatment. The person must be discharged or transferred to involuntary status. Form shall be completed within 24 hours of a person's arrival at the receiving facility and filed in the clinical record of each person: 1. Admitted on a voluntary basis 2. Permitted to provide express and informed consent to his/her own treatment 3. Allowed to transfer from involuntary to voluntary status 4. Prior to permitting a person to consent to his or her own treatment after having been previously found incompetent to consent to treatment. History of Present Illness Capacity: Has Capacity (to consent for medications) Psych Chief Complaint: Self-injurious behavior HPI Mr. Borrero is a 27-year-old male with a reported history of depression and alcohol use issues and a chart history of BPAD, Borderline/Antisocial PD, and substance use issues who presented to the ED voluntarily for face/neck lacerations. He was placed under the Daigle act by the ED provider. His alcohol level on presentation here was 230. Lacerations were closed with Dermabond in the ED, and there was no evidence of vascular compromise. Reviewing the electronic medical record, I note that patient was seen in consultation on 12/[address] 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 Patient seen and examined with nurse. Chart reviewed. Case discussed with nursing staff. No behavioral issues overnight. On my examination this morning the patient is clinically sober. He does not recall lacerating his neck. He attributes presenting injury to drinking, noting "I don't drink [regularly] so when I do stupid stuff happens. I was just overly intoxicated. That's why I don't drink." He denies any suicidal ideation, intent or plan now. He does admit to arguing with a friend prior to admission, and this may have been a stressor. He admits to some low mood and reports he has been non-adherent with psychotropic medications for 2 months. He previously took Wellbutrin and Xanax he tells me. He has tried other agents but the Wellbutrin is the only drug that provided him meaningful improvement by patient's report. He says that the only reason he stopped taking the Wellbutrin is because he is not good at making follow-up appointments for refills. In addition to low mood, the patient reports that he feels "morose" and in a "malaise" but denies other symptoms of depression. I can elicit no hypomanic or manic symptoms. He denies any audiovisual hallucinations. I can elicit no delusional beliefs. There is no evidence of impairment in reality construction. Cluster B personality traits are noted. The remainder of the psychiatric ROS is negative. The patient has no physical complaints. Past psychiatric history: Patient reports a history of depression. He has previously been treated by Dr. Hinds. Most recent psychiatric admission was here at [facility] under Dr. Boyce last April. He estimates that he has engaged in self-injurious behavior about 10 times in the past. Family history: The patient denies a family history of mental illness or suicide. Chemical dependency history: The patient says that he drinks only intermittently. Prior to presentation here he drank a 4 pack of beer and also had a 4-Francisco. He denies any history of DTs or seizures. He does admit that in addition to the self-injurious behavior his drinking has caused relationship problems in the past. He has attended alcohol rehabilitation in the past but has not found it helpful. His longest sober time is on the order of 2-3 months when he was in [facility]. He denies any other substance use. Social history: The patient lives with his girlfriend of 3 years. He plans to stay with his mother after discharge. He is high school educated. He does not work. He has no children. He denies any history. He denies any legal history. He denies any access to guns or firearms. He denies any pentecostal or spiritual beliefs. He denies any history of trauma. Review of Systems Except as stated in HPI: all other systems reviewed are Neg Past Family Social History Coded Allergies: penicillin G (Unverified Allergy, Severe, 01/01/18) Uncoded Allergies: DUST MITES (Allergy, Intermediate, SINUS ISSUES, 05/16/17) Past Medical History Patient denies any chronic medical conditions No Active Prescriptions or Reported Meds Current Medications Medications (Trade) Dose Ordered Sig/Mara Route Start Time Stop Time Status Last Admin (NS Flush) 2 ml UNSCH PRN IVF 01/01/18 21:30 (Tylenol) 650 mg Q4H PRN PO 01/02/18 17:30 (Milk Of Magnesia Liq) 30 ml DAILY PRN PO 01/02/18 17:30 (Mag-Al Plus Susp Liq) 30 ml Q6H PRN PO 01/02/18 17:30 Patient's Strengths (min. 2) In a monitored setting. Verbally fluent. Physical Exam Physical examination completed by ED provider. On my examination today, the patient appears to be in no acute physical distress. I do note 2 healing lacerations, ~2cm each, on the lateral aspects of his neck bilaterally. Wounds remain approximated with no signs of infection. Labs and vitals reviewed: Vital Signs Vital Signs Date Time Temp Pulse Resp B/P (MAP) Pulse Ox O2 Delivery O2 Flow Rate FiO2 5/14/18 06:23 98.1 69 16 106/54 (71) 100 01/02/18 12:10 Room Air Lab Results Item Value Date Time White Blood Count 7.1 TH/MM3 01/01/182143 Hemoglobin 13.0 GM/DL 01/01/182143 Platelet Count 362 TH/MM3 01/01/182143 Sodium Level 141 MEQ/L 01/03/18 09 Potassium Level 4.5 MEQ/L # 01/03/18 09 Chloride Level 106 MEQ/L 01/03/18 09 Carbon Dioxide Level 27.3 MEQ/L 01/03/18 09 Anion Gap 8 MEQ/L 01/03/18 09 Blood Urea Nitrogen 10 MG/DL 01/03/18 0905 Creatinine 0.66 MG/DL 01/03/18 09 Estimat Glomerular Filtration Rate 145 ML/MIN 01/03/18 09 Random Glucose 80 MG/DL 01/03/18 0905 Calcium Level 8.8 MG/DL 01/03/18 0905 Triglycerides Level 84 MG/DL 01/03/18 0905 Cholesterol Level 124 MG/DL 01/03/18 0905 HDL Cholesterol 47.6 MG/DL 01/03/18 0905 LDL Cholesterol 60 MG/DL 01/03/18 0905 Cholesterol/HDL Ratio 2.60 RATIO 01/03/18 0905 Ethyl Alcohol Level 230 MG/DL H 01/01/182143 Urine Opiates Screen NEG 01/02/18 1200 Urine Barbiturates Screen NEG 01/02/18 1200 Urine Amphetamines Screen NEG 01/02/18 1200 Urine Benzodiazepines Screen NEG 01/02/18 1200 Urine Cocaine Screen NEG 01/02/18 1200 Urine Cannabinoids Screen NEG 01/02/18 1200 Prothrombin Time 10.2 SEC 01/01/182143 Prothromb Time International Ratio 1.0 RATIO 01/01/182143 TSH was checked in November of this year and was within normal limits Mental Status Examination Appearance: Appropriate Consciousness: Alert Orientation: x4 Motor Activity: Normal gait, Other (No motor abnormalities noted. No signs of withdrawal or intoxication noted.) Speech: Unremarkable Language: Adequate Fund of Knowledge: Adequate Attention and Concentration: Adequate Memory: Unremarkable (Grossly intact on clinical exam) Mood: Other (mildly dysphoric) Affect: Appropriate Thought Process & Associations: Intact, Logical, Linear Thought Content: Appropriate Hallucination Type: None Delusion Type: None Suicidal Ideation: No Suicidal Plan: No Suicidal Intention: No Homicidal Ideation: No Homicidal Plan: No Homicidal Intention: No Mental Status Exam Remarks Insight and judgment are poor, perhaps chronically so Assessment & Plan Problem List: (1) Adjustment disorder with mixed disturbance of emotions and conduct ICD Codes: F43.25 - Adjustment disorder with mixed disturbance of emotions and conduct (2) Cluster B personality disorder ICD Codes: F60.9 - Personality disorder, unspecified (3) Alcohol dependence, binge pattern ICD Codes: F10.20 - Alcohol dependence, uncomplicated Assessment & Plan 27-year-old male with psychiatric history as detailed above who is presently admitted to the inpatient psychiatric unit under a Daigle act following episode of probable self-injurious behavior while intoxicated. Patient has a history of similar behavior in the past. I suspect this behavior is mediated by cluster B personality style and alcohol use disorder, probably binge pattern. Of his risk factors for ongoing self-harm, the alcohol use disorder is likely the most modifiable, and so I think it is prudent to place the patient under the physician certificate for emergency admission to [facility]. I will retain the patient on the inpatient unit for observation while this is being arranged. Admit inpatient. Patient remains under Daigle act. I have initiated physician' s certificate for emergency admission to a chemical dependency facility. Patient wishes to resume Wellbutrin. He denies a history of seizure or eating disorder. I have discussed with patient that his drinking raises the risk of seizure with Wellbutrin, but as noted above patient says that Wellbutrin is the only thing that has helped with his dysphoria. Start Wellbutrin SR 100mg BID. Atarax as needed for anxiety. Benadryl as needed for sleep. R/B/A for medications discussed with patient. CIWA with Ativan for any withdrawal. Thiamine and folate. Seizure precautions. Vitals every shift. Counselor to see and obtain collateral. Disposition planning. Estimated length of stay: 2- 3 days with plan for transfer to [facility]. Discharge Planning As above. Case d/w counselor and charger, who will contact [facility] re: P.[facility] Request HC Surrog/Guard Advoc?: No Manuel Raman MD January 03, 2018 09:52
[2018-01-03 09:58] LABS: BICARBONATE 27.3 MEQ/L (21.0-32.0); BLOOD UREA NITROGEN 10 MG/DL (7-18); CALCIUM 8.8 MG/DL (8.5-10.1); CHLORIDE 106 MEQ/L (98-107); CHOLESTEROL 124 MG/DL (120-200); CREATININE 0.66 MG/DL (0.60-1.30); GLOMERULAR FILTRATION RATE 145 ML/MIN (>89); GLUCOSE,RANDOM 80 MG/DL (74-106); HDL CHOLESTEROL 47.6 MG/DL (40.0-60.0); LDL CHOLESTEROL 60 MG/DL (0-99); SODIUM (NA) 141 MEQ/L (136-145); TRIGLYCERIDES 84 MG/DL (42-150)
[2018-01-03] MEDS ORDERED: LORazepam 1 MG TAB PO PRN (10:00)
[2018-01-03] MEDS ORDERED: diphenhydrAMINE HCL 50 MG CAP PO PRN (10:00)
[2018-01-03] MEDS ORDERED: hydrOXYzine HCL 50 MG TAB PO PRN (10:00)
[2018-01-03] MEDS ORDERED: LORazepam 2 MG TAB PO PRN (10:00)
[2018-01-03] MEDS ORDERED: FLUMAZENIL 0.5 MG/5 ML VIAL IV PUSH PRN (10:00)
[2018-01-03] MEDS ORDERED: LORazepam 2 MG/ML VIAL IV PUSH PRN ×4 (10:00)
[2018-01-03] MEDS: MULTIVITAMINS/MINERALS THERAPEUTIC TAB PO SCH (11:15)
[2018-01-03] MEDS: FOLIC ACID 1 MG TAB PO SCH (11:15)
[2018-01-03] MEDS: THIAMINE HCL 100 MG TAB PO SCH (11:15)
[2018-01-03] MEDS: buPROPion HCL 100 MG SUSTAINED RELEASE TAB PO SCH ×2 (13:20→15:00)
[2018-01-03 16:28] LABS: HEMOGLOBIN A1C 5.5 % (4.3-6.0)
[2018-01-03 16:59] VITALS: BP 121/56; PULSE 79; RESP 18; TEMP 98.6; O2SAT 100
[2018-01-04 06:00] VITALS: BP 119/69; PULSE 77; RESP 18; TEMP 98.8; O2SAT 98
[2018-01-04] MEDS: FOLIC ACID 1 MG TAB PO SCH (08:33)
[2018-01-04] MEDS: THIAMINE HCL 100 MG TAB PO SCH (08:33)
[2018-01-04] MEDS: MULTIVITAMINS/MINERALS THERAPEUTIC TAB PO SCH (08:34)
[2018-01-04] MEDS: buPROPion HCL 100 MG SUSTAINED RELEASE TAB PO SCH ×2 (09:00→14:36)
--- NOTE | 2018-01-04 10:02 | PD.TTN ---
Patient Problems 1. Discharge planning 2. Medication compliance 3. Knowledge deficit 4. Lack of coping skills Progress Toward Goals Provider Present: Dr. Amy Raman Provider Input: Dr. Raman's had his treatment team meeting to discuss treatment plan, medication, and discharge plan, Looking into transferring patient to [facility] for detox services at [facility], Patient practices self injurious behaviors. Patient started on Wellbutrin. Nurse(s) Input: Patient's nurse Isma reports patient denies suicidal ideation, doing well. Psychiatric Counselors Present: Yancy Rivera [facility] Psych Therapist Input: Patient slept well last night. Patient is cooperative with medication, patient will remain on unit until stablized. Group Spec/RT/OT/ZEPEDA Present: Mahamed Franco OT Group Spec/RT/OT/ZEPEDA Input: Patient does not attend groups. Yancy Rivera [facility] January 04, 2018 10:02
--- NOTE | 2018-01-04 11:55 | HHI.PYPN ---
Subjective Chief Complaint: Self-injurious behavior Remarks Patient seen and examined with nurse. Chart reviewed. Case discussed with nursing staff. Case discussed in treatment team. On my examination today, the patient is pleased to be back on his Wellbutrin. He denies any suicidal or homicidal ideation. No severe depressive or hypomanic/manic symptoms. Denies side effects from medications. No physical complaints. After our session, met with patient, counselor, nurse and social service director from patient's insurer, Robert [employer] to discuss discharge planning. Patient verbalizes willingness to pursue residential chemical dependency treatment, and Robert notes that patient would likely qualify for residential treatment at [facility]. Patient is agreeable to remaining on the inpatient unit until transfer to that facility can be arranged. Review of Systems Except as stated in HPI: all other systems reviewed are Neg Mental Status Examination Appearance: Appropriate Consciousness: Alert Orientation: x4 Motor Activity: Normal gait, Other (No motor abnormalities noted. No signs of withdrawal noted.) Speech: Unremarkable Language: Adequate Fund of Knowledge: Adequate Attention and Concentration: Adequate Memory: Unremarkable (Remains grossly intact on clinical exam) Mood: Appropriate Affect: Appropriate Thought Process & Associations: Intact, Logical, Goal directed, Linear Thought Content: Appropriate Hallucination Type: None Delusion Type: None Suicidal Ideation: No Suicidal Plan: No Suicidal Intention: No Homicidal Ideation: No Homicidal Plan: No Homicidal Intention: No Insight: Fair Judgment: Impulsive Results Labs Labs reviewed Vitals/IOs Vital Signs Date Time Temp Pulse Resp B/P (MAP) Pulse Ox O2 Delivery O2 Flow Rate FiO2 01/04/18 06:00 98.8 77 18 119/69 (86) 98 01/02/18 12:10 Room Air Assessment & Plan Problem List: (1) Adjustment disorder with mixed disturbance of emotions and conduct ICD Codes: F43.25 - Adjustment disorder with mixed disturbance of emotions and conduct (2) Cluster B personality disorder ICD Codes: F60.9 - Personality disorder, unspecified (3) Alcohol dependence, binge pattern ICD Codes: F10.20 - Alcohol dependence, uncomplicated Assessment & Plan Continue Wellbutrin as ordered. Continue to monitor on the inpatient unit. Continue other care as ordered. Patient may sign voluntary. Justification for Cont. Inpt. Risk for decompensation in less restrictive environment. Discharge Planning Plan is for discharge to residential chemical dependency treatment at [facility], hopefully within the next day or 2. Request HC Surrog/Guard Advoc?: No Manuel Raman MD January 04, 2018 11:55
[2018-01-04] MEDS: NICOTINE 21 MG/24 HR PATCH T-DERMAL SCH (12:30)
[2018-01-04 17:46] VITALS: BP 129/59; PULSE 85; RESP 16; TEMP 98.6; O2SAT 97
[2018-01-05 06:07] VITALS: BP 116/58; PULSE 79; RESP 18; TEMP 97.7; O2SAT 99
[2018-01-05] MEDS ORDERED: REMOVE OLD PATCH T-DERMAL SCH (09:00)
[2018-01-05] MEDS: NICOTINE 21 MG/24 HR PATCH T-DERMAL SCH (09:32)
[2018-01-05] MEDS: FOLIC ACID 1 MG TAB PO SCH (09:32)
[2018-01-05] MEDS: THIAMINE HCL 100 MG TAB PO SCH (09:32)
[2018-01-05] MEDS: MULTIVITAMINS/MINERALS THERAPEUTIC TAB PO SCH (09:32)
[2018-01-05] MEDS: buPROPion HCL 100 MG SUSTAINED RELEASE TAB PO SCH (09:32)
[2018-01-05] MEDS ORDERED: BUPR100CR PO (09:50)
--- NOTE | 2018-01-05 09:50 | HHI.DS ---
Psychiatry Discharge Summary Inpatient Psychiatric care?: Yes Advance Directive: No Reason Not Provided: DECLINED Mental Health AdvanceDirective: No Health Care Proxy: No Admission Admission Date January 02, 2018 at 17:21 Admission Diagnosis: (1) Adjustment disorder with mixed disturbance of emotions and conduct ICD Code: F43.25 - Adjustment disorder with mixed disturbance of emotions and conduct (2) Cluster B personality disorder ICD Code: F60.9 - Personality disorder, unspecified (3) Alcohol dependence, binge pattern ICD Code: F10.20 - Alcohol dependence, uncomplicated Brief History Mr. Borrero is a 27-year-old male with a reported history of depression and alcohol use issues and a chart history of BPAD, Borderline/Antisocial PD, and substance use issues who presented to the ED voluntarily for face/neck lacerations. He was placed under the [place] act by the ED provider. His alcohol level on presentation here was 230. Lacerations were closed with Dermabond in the ED, and there was no evidence of vascular compromise. Reviewing the electronic medical record, I note that patient was seen in consultation on 12/[address] 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 Patient seen and examined with nurse. Chart reviewed. Case discussed with nursing staff. No behavioral issues overnight. On my examination this morning the patient is clinically sober. He does not recall lacerating his neck. He attributes presenting injury to drinking, noting "I don't drink [regularly] so when I do stupid stuff happens. I was just overly intoxicated. That's why I don't drink." He denies any suicidal ideation, intent or plan now. He does admit to arguing with a friend prior to admission, and this may have been a stressor. He admits to some low mood and reports he has been non-adherent with psychotropic medications for 2 months. He previously took Wellbutrin and Xanax he tells me. He has tried other agents but the Wellbutrin is the only drug that provided him meaningful improvement by patient's report. He says that the only reason he stopped taking the Wellbutrin is because he is not good at making follow-up appointments for refills. In addition to low mood, the patient reports that he feels "morose" and in a "malaise" but denies other symptoms of depression. I can elicit no hypomanic or manic symptoms. He denies any audiovisual hallucinations. I can elicit no delusional beliefs. There is no evidence of impairment in reality construction. Cluster B personality traits are noted. The remainder of the psychiatric ROS is negative. The patient has no physical complaints. Past psychiatric history: Patient reports a history of depression. He has previously been treated by Dr. Hinds. Most recent psychiatric admission was here at [facility] under Dr. Boyce last April. He estimates that he has engaged in self-injurious behavior about 10 times in the past. Family history: The patient denies a family history of mental illness or suicide. Chemical dependency history: The patient says that he drinks only intermittently. Prior to presentation here he drank a 4 pack of beer and also had a 4-Francisco. He denies any history of DTs or seizures. He does admit that in addition to the self-injurious behavior his drinking has caused relationship problems in the past. He has attended alcohol rehabilitation in the past but has not found it helpful. His longest sober time is on the order of 2-3 months when he was in [facility]. He denies any other substance use. Social history: The patient lives with his girlfriend of 3 years. He plans to stay with his mother after discharge. He is high school educated. He does not work. He has no children. He denies any history. He denies any legal history. He denies any access to guns or firearms. He denies any restoration or spiritual beliefs. He denies any history of trauma. Tobacco Use In Past 30 Days: 5 or More Cigarettes/Day Alcohol Use: 2-3 Times Per Week Hospital Course Patient was admitted to a locked, inpatient psychiatric unit. Appropriate precautions were in place throughout patient's hospital stay. Patient was seen and examined on the unit by psychiatry and also visited by counselor. Psychotropic medications were adjusted. There was no evidence of any suicidality or homicidality on the inpatient unit. There was no evidence of self-care deficit. Collateral information was obtained by the counselor from the patient's family. Working with the patient and the patient's insurer, we have arranged for the patient to enter into residential chemical dependency treatment today. On the day of discharge: Patient seen and examined with counselor. Chart reviewed. Case discussed with nursing staff. No behavioral issues noted overnight. Case discussed with counselor. On my examination today , the patient denies any suicidal or homicidal ideation, intent or plan and contracts for safety. His mood is reportedly improved, and I can elicit no depressive or hypomanic/manic symptoms. He reports that he slept well overnight and is eating well. He denies any audiovisual hallucinations. I can elicit no delusional material. There is no evidence of any impairment in reality construction. He denies side effects from medications. He has no physical complaints and in particular denies any symptoms of withdrawal. 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 The patient is requesting discharge from the inpatient psychiatric unit in order to enter residential chemical dependency treatment, and I have no basis to retain him over his objection. Patient will be discharged today to residential chemical dependency treatment facility with psychiatric follow-up as arranged by counselor. Patient is also to follow up with primary care. I have supported the patient in his stated desire for abstinence from substances. I have counseled the patient regarding warning signs for need to return to the psychiatric emergency room as part of a general safety plan. N.B. I was notified by counselor that after the patient was discharged and as he was about to enter transport to residential treatment facility the patient took off running. As a result of his apparent refusal to follow through with the discharge plan that had been arranged, he leaves very much AGAINST MEDICAL ADVICE. Results Blood Pressure 116 / 58 Vital Signs Date Time Temp Pulse Resp B/P (MAP) Pulse Ox O2 Delivery O2 Flow Rate FiO2 01/05/18 06:07 97.7 79 18 116/58 (77) 99 01/02/18 12:10 Room Air Laboratory Tests Test 01/02/18 12:00 01/03/18 09:05 Laboratory Results Test 01/03/18 09:05 Cholesterol Level 124 MG/DL (120-200) HDL Cholesterol 47.6 MG/DL (40.0-60.0) Hemoglobin A1c 5.5 % (4.3-6.0) LDL Cholesterol 60 MG/DL (0-99) Triglycerides Level 84 MG/DL (42-150) Summary of Procedures None done Imaging Last Impressions Neck CTA 01/01/18 0000 Signed Impressions: Service Date/Time: Monday, January 01, 2018 22:29 - CONCLUSION: Subcutaneous emphysema along the right side of the neck extending to the tissue planes with no vascular injury. Layton Huff MD Pending results at discharge: No Medications # of Antipsychotic meds at D/C: 0 Approp Antipsych med options 1 - Minimum of three failed multiple trials of monotherapy. 2 - Documented plan to taper to monotherapy due to previous use of multiple meds OR cross-taper in progress at D/C. 3 - Documentation of augmentation of Clozapine. 4 - Justification other than those listed in allowable values 1-3, document here : Discharge Discharge Date: January 05, 2018 Discharge Diagnosis: (1) Adjustment disorder with mixed disturbance of emotions and conduct Diagnosis: Principal ICD Code: F43.25 - Adjustment disorder with mixed disturbance of emotions and conduct (2) Cluster B personality disorder Diagnosis: Secondary ICD Code: F60.9 - Personality disorder, unspecified (3) Alcohol dependence, binge pattern Diagnosis: Secondary ICD Code: F10.20 - Alcohol dependence, uncomplicated Pt Condition on Discharge: Guarded (Given events as noted above) Discharge Disposition: Disc to Psych Care Fac Discharge Instructions Diet Instructions: As Tolerated, No Restrictions Activities you can perform: Weight Bearing as Ligia Scheduled Appointment: Miek Batista New Medications: Bupropion HCl ER 12 HR (Wellbutrin SR 12 HR) 100 Mg Tab 100 MG PO BID@0900,1500 for Mental Health for 15 Days, TAB 1 Refill Discharge Time <= 30 minutes Mental Status Examination Appearance: Appropriate Consciousness: Alert Orientation: x4 Motor Activity: Normal gait, Other (No signs of withdrawal noted. No motoric abnormalities noted.) Speech: Unremarkable Language: Adequate Fund of Knowledge: Adequate Attention and Concentration: Adequate Memory: Unremarkable (Remains grossly intact on clinical exam) Mood: Appropriate Affect: Appropriate Thought Process & Associations: Intact, Logical, Goal directed, Linear Thought Content: Appropriate Hallucination Type: None Delusion Type: None Suicidal Ideation: No Suicidal Plan: No Suicidal Intention: No Homicidal Ideation: No Homicidal Plan: No Homicidal Intention: No Mental Status Exam Remarks Insight and judgment are fair to poor at best Discharge/Advance Care Plan Health Problems: (1) Adjustment disorder with mixed disturbance of emotions and conduct (2) Cluster B personality disorder (3) Alcohol dependence, binge pattern Goals to promote your health * To prevent worsening of your condition and complications * To maintain your health at the optimal level Directions to meet your goals Take your medications as prescribed Follow your dietary instruction Follow activity as directed Keep your appointments as scheduled Take your immunizations and boosters as scheduled If your symptoms worsen call your PCP, if no PCP go to Urgent Care Center or Emergency Room For 15/03 questions related to your inpatient stay or results of tests pending at discharge, please contact Dr. Manuel Raman at Smoking is Dangerous to Your Health. Avoid second hand smoking Manuel Raman MD January 05, 2018 09:50
== END 2018-01-05 11:45 | disposition left against medical advice (07) | DRG 897 ==
LOC: NEPD 21:06 → NEDA 01-02 17:21 → H270 01-02 19:58 → H260 01-04 09:12
PROVIDERS: ADMIT Psychiatry & Neurology Psychiatry; ATTEND Psychiatry & Neurology Psychiatry
PROC: 0HQ1XZZ Repair Face Skin, External Approach (ICD-10-PCS; principal; 2018-01-02)
PROC: 0HQ4XZZ Repair Neck Skin, External Approach (ICD-10-PCS; 2018-01-02)
DX: F10.229 Alcohol dependence with intoxication, unspecified (principal); F31.9 Bipolar disorder, unspecified; F43.25 Adjustment disorder with mixed disturbance of emotions and conduct; F41.9 Anxiety disorder, unspecified; F17.210 Nicotine dependence, cigarettes, uncomplicated; S01.412A Laceration without foreign body of left cheek and temporomandibular area, initial encounter; S11.91XA Laceration without foreign body of unspecified part of neck, initial encounter; F60.3 Borderline personality disorder; F60.2 Antisocial personality disorder; Z91.5 Personal history of self-harm; Y90.7 Blood alcohol level of 200-239 mg/100 ml; Y33.XXXA Other specified events, undetermined intent, initial encounter
CPT/HCPCS: 12002; 12011; 70498; 80048; 80061; 80307; 83036; 85025; 85610; 86850; 86900; 86901; 90471; 90715; 96360; J7030; Q9967